=== PATIENT | male | born 1970 | race Caucasian/White ===

== ENCOUNTER 2016-03-18 02:03 | Inpatient (IN) | payer MEDICAID ==
[~2016-03-18] VITALS: Ht 180.3 cm; Wt 102.2 kg
[~2016-03-18 02:03] MED LIST: GEMF600T PO; LANT3I SC; LEVO500T72 PO; METF500T PO; REPA2TAB6 PO; ULT50 PO
[2016-03-18] MEDS ORDERED: SODIUM CHLORIDE 0.9% 1L BAG IV* STA (02:51)
[2016-03-18] MEDS ORDERED: ONDANSETRON 4 MG INJ IV STA (02:59)
[2016-03-18] MEDS ORDERED: morphine 4 MG/ML VIAL IV STA (02:59)
[2016-03-18] MEDS ORDERED: AZTREONAM 1 GM/NS (PMX) 50 ML IVPB ONE (03:00)
[2016-03-18] MEDS ORDERED: VANCOMYCIN 1 GM (PMX) 250 ML IVPB ONE (03:00)
[2016-03-18 04:09] LABS: PARTIAL THROMBOPLASTIN TIME 26.6 Sec (25.0-35.0); PROTIME 13.2 Sec (12.2-14.2)
--- NOTE | 2016-03-18 04:09 | RADRPT ---
PROCEDURE: Chest. CLINICAL INDICATION: Chest pain. TECHNIQUE: Single frontal view of the chest was obtained. COMPARISON: 10/12/2015. FINDINGS: The cardiac silhouette is within normal limits. The aortic arch is unremarkable. There is no focal consolidation, vascular congestion or pleural effusion. There is no pneumothorax. IMPRESSION: No evidence for active cardiopulmonary disease. .Timi Lee MD, MD Date Time Electronically viewed and signed by .Timi Lee MD, on 03/18/2016 04:09 .T/
[2016-03-18 04:11] LABS: BASOPHIL # 0.1 10^3/ul (0.0-0.1); BASOPHILS % 0.5 % (0.0-2.0); EOSINOPHILS # 0.3 10^3/ul (0.0-0.5); EOSINOPHILS % 2.1 % (0.0-7.0); HEMATOCRIT 39.2 % (42.0-52.0); HEMOGLOBIN 13.1 g/dl (14.0-18.0); LYMPHOCYTES # 2.3 10^3/ul (0.8-2.9); LYMPHOCYTES % 17.9 % (15.0-51.0); MEAN CORPUSCULAR HGB CONC 33.5 g/dl (32.0-37.0); MEAN CORPUSCULAR VOLUME 86.7 fl (82.0-101.0); MEAN PLATELET VOLUME 8.2 fl (7.4-10.4); MONOCYTE # 1.2 10^3/ul (0.3-0.9); MONOCYTES % 9.6 % (0.0-11.0); NEUTROPHIL # 9.1 10^3/ul (1.6-7.5); NEUTROPHILS % 69.9 % (39.0-77.0); PLATELET COUNT 371 10^3/UL (140-440); RED BLOOD COUNT 4.53 10^6/ul (4.70-6.10); RED CELL DISTRIBUTION WIDTH 14.9 % (11.5-14.5)
[2016-03-18 04:14] LABS: CONDITION 1; LH ANALYZER COMMENTS 1
[2016-03-18 04:17] LABS: ALBUMIN 3.9 g/dl (3.3-4.9); CHLORIDE 95 mmol/L (97-110); POTASSIUM 4.5 mmol/L (3.5-5.1); SODIUM 136 mmol/L (135-144)
[2016-03-18 04:19] LABS: ANION GAP 20 (8-16); BILIRUBIN,INDIRECT 0.1 mg/dl (0-1.1); BILIRUBIN,TOTAL 0.1 mg/dl (0.2-1.3); CARBON DIOXIDE 26 mmol/L (21-31); CREATININE 1.02 mg/dl (0.61-1.24)
[2016-03-18 04:20] LABS: ALANINE AMINOTRANSFERASE 14 IU/L (13-69); ALBUMIN/GLOBULIN RATIO 0.79; ALKALINE PHOSPHATASE 122 IU/L (42-121); ASPARTATE AMINO TRANSFERASE 13 IU/L (15-46); BLOOD UREA NITROGEN 22 mg/dl (7-20); CALCIUM 9.5 mg/dl (8.4-10.2); TOTAL PROTEIN 8.8 g/dl (6.1-8.1)
[2016-03-18 04:32] LABS: GLUCOSE 414 mg/dl (70-220)
[2016-03-18] MEDS ORDERED: INSULIN LISPRO 100 UNIT/ML VIAL SC STA (04:34)
[2016-03-18 04:40] LABS: TROPONIN-I < 0.012 ng/ml (0.00-0.12)
--- NOTE | 2016-03-18 04:50 | RADRPT ---
PROCEDURE: XR Foot. CLINICAL INDICATION: Infection. TECHNIQUE: AP, lateral and oblique views of the right foot was obtained. COMPARISON: There are no similar studies submitted for comparison. FINDINGS: There is normal bone mineralization. There is no acute fracture or dislocation. No osseous erosions are identified. The joint spaces are within normal limits. IMPRESSION: No destructive osseous changes. Please note this does not exclude osteomyelitis. RPTAT: HIKT .Brent Van MD, MD Date Time Electronically viewed and signed by .Brent Van MD, MD on 03/18/2016 04:50 .T/
[2016-03-18] MEDS ORDERED: SOD CHLORIDE 0.9% 1,000 ML IV STA ×2 (04:52)
[2016-03-18] MEDS ORDERED: SOD CHLORIDE 0.9% 500 ML IV STA (04:52)
--- NOTE | 2016-03-18 05:25 | ERA ---
ER Documentation Chief Complaint Date/Time DATE: 03/18/16 TIME: 05:22 Chief Complaint R foot diabetic ulcer worsening pain HPI Patient is a 45-year-old male with diabetes who presents with a right sided foot ulcer with infection. He said that he stepped on a nail 2.5 years ago and this is when it all started. However his ulcer started again on March 10. It is gotten worse. He says "I popped the white part". He had subjective fevers but has not taken his temperature as of yet. He has had no recent antibiotics. Upon review of old medical records this is the patient's ninth visit to the ER since 2014. He does not know the name of his primary doctor. ROS All systems reviewed and are negative except as per history of present illness. Medications Home Meds Active Scripts Levofloxacin* (Levaquin*) 500 Mg Tablet, 500 MG PO DAILY@06 for 42 Days, TAB x6 weeks Prov:TED WISDOM NP 10/17/15 Insulin Glargine* (Lantus*) 100 Unit/Ml Soln, 24 UNIT SC DAILY for 30 Days Prov:TED WISDOM NP 10/17/15 Tramadol HCl (Tramadol HCl) 50 Mg Tab, 50 MG PO Q6H Y for PAIN, #20 TAB Prov:WILTON NANCE 12/16/14 Repaglinide* (Prandin*) 2 Mg Tablet, 2 MG PO AC MEALS for 30 Days, TAB Prov:WILTON NANCE 12/16/14 Metformin Hcl (Glucophage) 500 Mg Tab, 1000 MG PO WITH BREAKFAST DINNE for 30 Days Prov:WILTON NANCE 12/16/14 Gemfibrozil* (Lopid*) 600 Mg Tab, 600 MG PO BID for 30 Days Prov:WILTON NANCE 12/16/14 Allergies Allergies: Coded Allergies: cefepime (Verified Allergy, Intermediate, HIVES, 12/03/14) PMhx/Soc History of Surgery: Yes (R ankle surgery) Anesthesia Reaction: No Hx Neurological Disorder: No Hx Respiratory Disorders: No Hx Cardiac Disorders: No Hx Psychiatric Problems: No Hx Miscellaneous Medical Probl: Yes (DM2, diabetic foot ulcers x2 years) Hx Alcohol Use: Yes (SOCIAL DRINKER) Hx Substance Use: Yes Hx Tobacco Use: No Smoking Status: Never smoker FmHx Family History: diabetes Physical Exam Vitals Vital Signs Date Time Temp Pulse Resp B/P Pulse Ox O2 Delivery O2 Flow Rate FiO2 03/18/16 02:10 98.0 118 18 139/90 96 Physical Exam Const: Mild distress Head: Atraumatic Eyes: Normal Conjunctiva ENT: Normal External Ears, Nose and Mouth. Neck: Full range of motion..~ No meningismus. Resp: Clear to auscultation bilaterally Cardio: Regular rate and rhythm, no murmurs Abd: Soft, non tender, non distended. Normal bowel sounds Skin: Diabetic foot ulcer to the base of the right foot with surrounding erythema and warmth to touch Back: No midline or flank tenderness Ext: No cyanosis, or edema Neur: Awake and alert Psych: Normal Mood and Affect Result Diagram: 03/18/160 03/18/16 0310 Results 24 hrs Laboratory Tests Test 03/18/16 03:10 03/18/16 03:40 03/18/16 05:02 Activated Partial Thromboplast Time 26.6Sec Alanine Aminotransferase (ALT/SGPT) 14IU/L Albumin 3.9g/dl Albumin/Globulin Ratio 0.79 Alkaline Phosphatase 122IU/L Anion Gap 20 Aspartate Amino Transf (AST/SGOT) 13IU/L Basophils # 0.110^3/ul Basophils % 0.5% Blood Morphology Comment Blood Urea Nitrogen 22mg/dl Calcium Level 9.5mg/dl Carbon Dioxide Level 26mmol/L Chloride Level 95mmol/L Creatinine 1.02mg/dl Direct Bilirubin 0.00mg/dl Eosinophils # 0.310^3/ul Eosinophils % 2.1% Globulin 4.90g/dl Glucose Level 414mg/dl Hematocrit 39.2% Hemoglobin 13.1g/dl INR International Normalized Ratio 1.00 Indirect Bilirubin 0.1mg/dl Lymphocytes # 2.310^3/ul Lymphocytes % 17.9% Mean Corpuscular Hemoglobin 29.0pg Mean Corpuscular Hemoglobin Concent 33.5g/dl Mean Corpuscular Volume 86.7fl Mean Platelet Volume 8.2fl Monocytes # 1.210^3/ul Monocytes % 9.6% Neutrophils # 9.110^3/ul Neutrophils % 69.9% Nucleated Red Blood Cells # 0.010^3/ul Nucleated Red Blood Cells % 0.0/100WBC Platelet Count 54351^3/UL Potassium Level 4.5mmol/L Prothrombin Time 13.2Sec Prothrombin Time Ratio 1.0 Red Blood Count 4.5310^6/ul Red Cell Distribution Width 14.9% Sodium Level 136mmol/L Total Bilirubin 0.1mg/dl Total Protein 8.8g/dl Troponin I < 0.012ng/ml White Blood Count 13.010^3/ul Lactic Acid Level 2.3mmol/L Bedside Glucose 325mg/dL Current Medications Medications (Trade) Dose Ordered Sig/Cody Route PRN Reason Start Time Stop Time Status Last Admin Dose Admin Sodium Chloride 3190 ml 3,190 ml BOLUS OVER 2 HOURS STAT IV* 03/18/16 02:51 03/18/16 02:53 DC 03/18/16 03:23 Vancomycin HCl 250 ml @ 125 mls/hr ONCE ONCE IVPB 03/18/16 03:00 03/18/16 04:59 DC 03/18/16 04:09 Aztreonam (Azactam 1gm/NS (Pmx)) 50 ml @ 100 mls/hr ONCE ONCE IVPB 03/18/16 03:00 03/18/16 03:29 DC 03/18/16 03:34 Morphine Sulfate (morphine) 4 mg ONCE STAT IV 03/18/16 02:59 03/18/16 03:00 DC 03/18/16 03:22 Ondansetron HCl (Zofran Inj) 4 mg ONCE STAT IV 03/18/16 02:59 03/18/16 03:00 DC 03/18/16 03:22 Insulin Human Lispro 10 unit 10 unit ONCE STAT SC 03/18/16 04:34 03/18/16 04:35 DC 03/18/16 05:06 Sodium Chloride 1,000 ml @ 1,000 mls/hr Q1H STAT IV 03/18/16 04:52 03/18/16 05:51 03/18/16 05:07 Sodium Chloride 500 ml @ 500 mls/hr Q1H STAT IV 03/18/16 04:52 03/18/16 05:51 03/18/16 05:07 Sodium Chloride (NS) 1,000 ml @ 1,000 mls/hr Q1H STAT IV 03/18/16 04:52 03/18/16 05:51 03/18/16 05:07 Ondansetron HCl (Zofran Inj) 4 mg BRIDGE ORDER PRN IV NAUSEA AND/OR VOMITING 03/18/16 05:30 03/19/16 05:29 Acetaminophen (Tylenol Tab) 650 mg ER BRIDGE PRN PO MILD PAIN/FEVER 03/18/16 05:30 03/19/16 05:29 Procedures/MDM Chest x-ray negative per radiology. X-ray of the right foot negative for osteomyelitis per radiology. Admit MDM: Patient's infectious symptoms have not stabilized and the patient is at risk of rapid decompensation. The patient will be admitted for careful hydration, antibiotic therapy, and infectious source control. Severe Sepsis criteria: Infectious source: Diabetic foot ulcer with cellulitis End organ damage indicated by: Lactate greater than 2 Sepsis Management: Time of recognition of sepsis: 03:40 Within 3 hours of recognition: Blood cultures x 2 before broad-spectrum antibiotics: Yes 30 ml/kg NS bolus Completed Initial lactate 2.3 Repeat lactate pending Time of recognition of septic shock: No septic shock Septic Shock Assessment: Any lactic acid > 4.0 No Persistent hypotension (SBP < 90 or 40 mmHg drop, MAP < 65) despite 30 mL/kg IV fluid bolus No Volume Re-assessment for Septic Shock (post 30 ml/kg bolus): No septic shock at this time Persistent Hypotension Treatment: Comfort care No Central line Not Required Vasopressor started Not required I considered further perfusion assessment with CVP measurement, SCVO2, bedside ultrasound volume assessment, passive leg raise, trial of further fluid bolus. And proceeded with 30 ml/kg fluid bolus of NSS, broad spectrum antibiotics, and admission. The patient has hyperglycemia and was given Humalog subcutaneous but there are no signs of diabetic ketoacidosis. Accepting Care Team Current data and ongoing care discussed. Admitting Physician: Dr. Menon Distributor Of Directories(s): None Outstanding Data: Culture results and repeat lactic acid Critical Care: Critical care time 35 minutes excluding all billable procedures Emergent fluid management while maintaining close respiratory support. Provision of immediate and broad-spectrum antibiotic therapy. Simultaneous assessment for possible sources in order to direct targeted therapy. Consideration for invasive and chemical support to prevent cardiopulmonary collapse. Departure Diagnosis: Primary Impression: Severe sepsis Additional Impressions: Diabetic foot ulcer Qualified Code: E13.621 - Diabetic ulcer of right foot associated with other specified diabetes mellitus Foot pain Qualified Code: M79.671 - Right foot pain Condition: Serious OSTICK,ANA LILIA MD Mar 18, 2016 05:25
[2016-03-18 05:27] VITALS: TEMP 97.9
[2016-03-18] MEDS ORDERED: ONDANSETRON 4 MG INJ IV PRN (05:30)
[2016-03-18] MEDS ORDERED: ACETAMINOPHEN 325 MG TAB PO PRN (05:30)
[2016-03-18] MEDS ORDERED: traMADol 50 MG TAB PO PRN (06:00)
[2016-03-18] MEDS ORDERED: INSULIN GLARGINE [LANtus] 3 ML PEN SC SCH (06:00)
[2016-03-18] MEDS ORDERED: CLINDAMYCIN 600 MG/D5W (PMX) 50 ML IVPB SCH (06:00)
[2016-03-18] MEDS ORDERED: DEXTROSE 50% 50 ML SYRINGE IV PRN ×2 (06:30)
[2016-03-18] MEDS ORDERED: GLUCOSE GEL 15 GRAM TUBE BUCCAL PRN (06:30)
[2016-03-18] MEDS ORDERED: GLUCAGON 1 MG INJ IM PRN (06:30)
[2016-03-18] MEDS ORDERED: GLUCOSE GEL 15 GRAM TUBE PO PRN ×2 (06:30)
[2016-03-18 06:50] VITALS: BP 133/90; PULSE 80; RESP 20
[2016-03-18 06:52] VITALS: Ht 180.3 cm; Wt 102.2 kg
[2016-03-18] MEDS ORDERED: REPAGLINIDE 2 MG TAB PO SCH (07:00)
[2016-03-18] MEDS ORDERED: metFORMIN 500 MG TAB PO SCH (08:00)
[2016-03-18 08:09] VITALS: BP 130/79; RESP 20
[2016-03-18] MEDS: LEVOFLOXACIN 750MG/D5W (PMX) 150 ML IVPB SCH (08:24)
[2016-03-18] MEDS: GEMFIBROZIL 600 MG TAB PO SCH ×2 (08:26→20:05)
[2016-03-18] MEDS: FAMOTIDINE 20 MG TAB PO SCH ×2 (08:27→20:05)
[2016-03-18] MEDS: INSULIN ASPART [NOVOLOG] 3 ML PEN SC SCH ×4 (08:35→20:07)
[2016-03-18] MEDS: ENOXAPARIN 40 MG/0.4 ML SYG SC SCH (08:35)
[2016-03-18] MEDS ORDERED: LISINOPRIL 10 MG TAB PO SCH (09:00)
--- NOTE | 2016-03-18 10:14 | PN ---
DATE: 03/18/2016 03/18/2016 SUBJECTIVE: No acute events overnight. The patient, however, complaining of some left-s ided facial swelling. OBJECTIVE VITAL SIGNS: Stable. GENERAL: The patient is lying in bed, no acute distress. HEENT: Pupils equal, round, reactive to light. Extraocular muscles intact. There is some left-trena ed facial swelling but no bleeding noted. NECK: Supple, no thyromegaly. LUNGS: Clear to auscultation bilaterally. CARDIOVASCULAR: S1, S2 heard. No rubs or gallops. ABDOMEN: Soft, nontender, nondistended. Normal bowel sounds. No rebound or guarding. MUSCULOSKELETAL: Based on the right foot shows surrounding erythema and slightly warm to touch. No significant bleeding or oozing noted. Ulcer is present. No lower extremity edema bilaterally. NEUROLOGIC: No focal deficits. LABORATORY DATA: WBC 13.0, hemoglobin 13.1, hematocrit 39.2, platelets of 371. Sodium 136, potassi um 4.5, chloride 95, CO2 26, BUN 22, creatinine 1.02, glucose 414. Most recent fingerstick is 202 o f the sugars. Lactic acid 1.4. LFTs are normal. IMAGING: The right foot x-ray shows no destructive osseous changes, but cannot exclude osteomyeliti s. ASSESSMENT AND PLAN: A 45-year-old male with prior history of uncontrolled diabetes type 2 and righ t foot diabetic ulcer with prior osteomyelitis, who presents with right diabetic ulcer of the foot, worsening. 1. Right diabetic foot ulcer. Continue broad spectrum antibiotics. Will get a podiatry and infect ious disease consults, those are pending. Follow up final culture results as well. Consider surgic al options versus medical treatment. Again, discussed with mental health consultant teams. 2. Uncontrolled type 2 diabetes. Last A1c performed on last admission about 4 months ago was 10.0. Continue Prandin and moderate insulin sliding scale and Lantus. Hold metformin in case the patien t needs any imaging studies with contrast. Consider an endocrinology consult as well. 3. History of methamphetamine use. Follow up drug screen pending. 4. Normocytic normochromic anemia, presently H and H is stable. Continue to monitor for now. 5. History of high cholesterol, hypertriglyceridemia. Continue gemfibrozil. 6. Gastrointestinal prophylaxis. Pepcid. 7. Deep venous thrombosis prophylaxis, Lovenox. Dictated By: RHETT GARCIA Conf#: [id number] DID#: [id number]
--- NOTE | 2016-03-18 10:25 | HP ---
DATE OF ADMISSION: 03/18/2016 PRESENTING COMPLAINT: Right foot pain. HISTORY OF PRESENTING COMPLAINT: This is a 45-year-old male with a past medical history of diabetes type 2, dyslipidemia, and a chronic right foot infection for which he was managed here in 10/2015 a nd there was some concern for early osteomyelitis and he was discharged home on a 6-week antibiotic course. The patient states that his wound was getting better up until about 7 days ago when he karla ed an abscess, a part that he describes as white, and since then, the pain has seemed to get worse. Therefore, the patient came back to the ER today. He does endorse subjective fever. Denies nausea or vomiting. Denies inability to raise the joint or move the joint. Denies lesions anywhere else at this time. REVIEW OF SYSTEMS: A 12-point review of system was done. Pertinent findings are as noted in HPI. PAST MEDICAL HISTORY: 1. Diabetes type 2. 2. Dyslipidemia. 3. Chronic foot ulcer with early osteomyelitis. 4. Chronic anemia of chronic illness. 5. Amphetamine abuser. SURGICAL HISTORY: Includes surgery to right ankle. ALLERGIES: CEFEPIME. SOCIAL HISTORY: Social amphetamine as well as alcohol use. FAMILY HISTORY: Positive for diabetes in both parents. PHYSICAL EXAMINATION: VITAL SIGNS: Temperature 97.9, pulse 104, respirations 18, blood pressure 102/50, saturations 98% o n room air. GENERAL: The patient was alert and oriented, in no distress. HEENT: Head is normocephalic. Pupils are equal, round, and reactive. Mucous membranes are moist. NECK: Supple. CHEST: Clear. CARDIOVASCULAR: S1 and S2, no murmurs. ABDOMEN: Soft, nontender, nondistended with normoactive bowel sounds. EXTREMITIES: There is a wound on the plantar surface of the right foot and another one on the heel. There is surrounding erythema. There is no visible discharge at this time. Otherwise, the left f oot looks normal without edema. The patient seems to have good range of motion in both lower extrem ities. PSYCHIATRIC: Patient was cooperative and calm with exam. LABORATORY VALUES: He has a leukocytosis of 13,000. His chronic anemia is stable with hemoglobin o f 13. Platelets are normal. Chemistry, again, reveals poorly controlled diabetes with a blood suga r of 414 and lactic acid 2.3. His alkaline phosphatase is elevated as is his total protein and glob ulin levels. Coagulation profile unremarkable today. Urinalysis and urine toxicology were not done today. IMAGING: He had a chest x-ray that showed no evidence of active cardiopulmonary disease on my revie w, and he had an x-ray of his right foot that showed no destructive osseous changes, but that does n ot rule out osteomyelitis. ASSESSMENT: This is a 45-year-old male, noncompliance with diabetic therapy, who is being managed a s follows: 1. Persistent right plantar diabetic foot ulcer, status post 6 weeks of antibiotics recurrent infection. Last cultures grew out Staphylococcus aureus, group B streptococcus, and group G beta-h emolytic streptococcus. The plan is to commence antibiotic therapy based on previous culture result s and repeat wound cultures and go from there. 2. Poorly controlled diabetes mellitus, which is likely contributing to nonhealing of #1, likely as a result of patient's lack of compliance with therapy. When patient was here the last time, he had good response to treatment. Will continue him on what he was taking before in terms of Lantus and metformin. Put him on an 1800 ADA diet and tailor his regimen as needed. 3. Dyslipidemia with hypertriglyceridemia, on gemfibrozil. Continue that. 4. Methamphetamine abuse. The patient had extensive counseling the last time he was in here regard ing quitting. Will re-recommend this at this time and continue to reinforce while in-house. 5. Anemia of chronic disease. The patient will receive in-house monitoring of his hemoglobin level s and intervention as indicated. I discussed this plan with the patient and have answered all quest ions. Admission time spent about 40 minutes. Dictated By: KAYA VEGA MD BA/NTS Conf#: [id number] DID#: [id number]
[2016-03-18] MEDS: morphine 2 MG INJ IV PRN ×3 (10:35→22:11)
[2016-03-18 11:45] LABS: ADD UMIC NO; URINE BILIRUBIN (Dip) NEGATIVE (NEGATIVE); URINE BLOOD (Dip) NEGATIVE (NEGATIVE); URINE COLOR LT. YELLOW (YELLOW); URINE KETONES (Dip) NEGATIVE (NEGATIVE); URINE LEUKOCYTE ESTERASE (Dip) NEGATIVE (NEGATIVE); URINE NITRITE (Dip) NEGATIVE (NEGATIVE); URINE TOTAL PROTEIN (Dip) NEGATIVE (NEGATIVE); URINE UROBILINOGEN (Dip) 0.2 E.U./dL (0.1-1.0)
[2016-03-18 12:03] LABS: BARBITURATES NEGATIVE (NEGATIVE); BENZODIAZEPINES NEGATIVE (NEGATIVE); CANNABINOIDS NEGATIVE (NEGATIVE); COCAINE NEGATIVE (NEGATIVE)
[2016-03-18 12:05] LABS: OPIATES POSITIVE (NEGATIVE)
[2016-03-18] MEDS: REPAGLINIDE 1 MG TAB PO SCH ×2 (12:40→17:32)
[2016-03-18] MEDS: CLINDAMYCIN 600 MG/D5W (PMX) 50 ML IVPB SCH (19:41)
[2016-03-18 20:00] VITALS: BP 115/71; PULSE 100; RESP 20
--- NOTE | 2016-03-18 20:15 | CONS ---
DATE OF ADMISSION: 03/18/2016 DATE OF CONSULTATION: 03/18/2016 TYPE OF CONSULTATION: Infectious disease. REASON FOR CONSULTATION: Right foot pain. HISTORY OF PRESENT ILLNESS: Ty Rodriguez is a 45-year-old male well known to us from previo admissions, who is admitted now with right foot pain. PAST PROBLEMS INCLUDE: 1. Adult-onset diabetes mellitus. 2. Dyslipidemia. 3. Chronic foot ulcer with early osteomyelitis. 4. Anemia of chronic disease. 5. Amphetamine abuse. 6. Surgery to the right ankle. 7. ALLERGY TO CEFEPIME. 8. History of alcohol use. He does not smoke. He does abuse amphetamines. The patient was seen with chronic foot infection, which was managed here in October of 2015. There w as concern for osteomyelitis and he was discharged on a 6-week course of antibiotic therapy. This w as completed in December, but he is noncompliant, kept picking on his wounds, and did not follow up w ith the [facility]. He was getting better until about 7 days prior to admission when he popped an a bscess, which he describes as being white, and the pain has been worse since then. He does have sub jective fever. PHYSICAL EXAMINATION: GENERAL: He is a well-developed, well-nourished male, alert, responsive, in no acute distr ess. VITAL SIGNS: Stable. He is afebrile. SKIN: Without generalized rash. HEENT: Within normal limits. NECK: Supple. LYMPH NODES: None palpable. CHEST: Decreased breath sounds at the bases. HEART: Without murmur or gallop. ABDOMEN: Soft, nontender without organosplenomegaly or masses. EXTREMITIES: There is a wound on the plantar surface of the right foot and also on the heel with kerr rrounding erythema. No visible discharge at this time. Left foot appears normal without edema. He has good range of motion of both lower extremities. RECTAL AND GENITAL: Deferred. NEUROLOGIC: No focal neurological abnormalities. ANCILLARY LABORATORY DATA: On admission, his white count is 13.0, H and H 13.1 and 39.2, platelet c ount 371,000. BUN and creatinine are 22/1.0. Glucose of 414. Urine is negative for nitrites and f or leukocyte esterase. Chest x-ray: No evidence of acute cardiopulmonary disease. Foot x-ray: No destructive changes. IMPRESSION AND PLAN: The patient presents again with a chronic foot ulcer. He is being followed by Dr. Mcclendon. He was started on clindamycin and Levaquin. We will continue him on this regimen. I will dictate my findings to the hospitalist and to Dr. Mcclendon. Dictated By: DIMA BURCIAGA MD, JD/RANDALL Conf#: [id number] DID#: [id number]
[2016-03-18 20:18] VITALS: BP 115/71; RESP 20
[2016-03-19] MEDS: ACCUCHECK AT 2AM (Patients on SS coverage) XX SCH (01:08)
[2016-03-19] MEDS: CLINDAMYCIN 600 MG/D5W (PMX) 50 ML IVPB SCH ×3 (02:23→18:30)
[2016-03-19] MEDS: morphine 2 MG INJ IV PRN ×3 (05:29→20:50)
[2016-03-19 06:04] LABS: POTASSIUM 4.4 mmol/L (3.5-5.1)
[2016-03-19 06:06] LABS: CREATININE 0.97 mg/dl (0.61-1.24)
[2016-03-19] MEDS: LEVOFLOXACIN 750MG/D5W (PMX) 150 ML IVPB SCH (06:06)
[2016-03-19 06:07] LABS: CALCIUM 8.9 mg/dl (8.4-10.2); MAGNESIUM 1.8 mg/dl (1.7-2.5)
[2016-03-19 06:25] LABS: BASOPHIL # 0.1 10^3/ul (0.0-0.1); BASOPHILS % 0.4 % (0.0-2.0); EOSINOPHILS # 0.3 10^3/ul (0.0-0.5); EOSINOPHILS % 2.8 % (0.0-7.0); HEMATOCRIT 35.8 % (42.0-52.0); LYMPHOCYTES # 2.6 10^3/ul (0.8-2.9); LYMPHOCYTES % 21.5 % (15.0-51.0); MEAN CORPUSCULAR HEMOGLOBIN 29.2 pg (29.0-33.0); MEAN CORPUSCULAR HGB CONC 33.5 g/dl (32.0-37.0); MEAN CORPUSCULAR VOLUME 87.3 fl (82.0-101.0); MONOCYTE # 1.1 10^3/ul (0.3-0.9); MONOCYTES % 9.5 % (0.0-11.0); NEUTROPHIL # 7.9 10^3/ul (1.6-7.5); NEUTROPHILS % 65.8 % (39.0-77.0); PLATELET COUNT 345 10^3/UL (140-440); RED CELL DISTRIBUTION WIDTH 14.8 % (11.5-14.5); UNCORRECTED WBC 12.1 10^3/ul (4.8-10.8); WHITE BLOOD COUNT 12.1 10^3/ul (4.8-10.8)
[2016-03-19 06:31] LABS: CONDITION 1; LH ANALYZER COMMENTS 1
[2016-03-19 07:16] VITALS: BP 116/69; RESP 18
[2016-03-19] MEDS: REPAGLINIDE 1 MG TAB PO SCH ×3 (08:19→17:52)
[2016-03-19] MEDS: GEMFIBROZIL 600 MG TAB PO SCH ×2 (08:20→20:43)
[2016-03-19] MEDS: FAMOTIDINE 20 MG TAB PO SCH ×2 (08:20→20:43)
[2016-03-19] MEDS: INSULIN ASPART [NOVOLOG] 3 ML PEN SC SCH ×4 (08:29→20:48)
[2016-03-19] MEDS: ENOXAPARIN 40 MG/0.4 ML SYG SC SCH (08:30)
[2016-03-19] MEDS: INSULIN GLARGINE [LANtus] 3 ML PEN SC SCH (08:39)
--- NOTE | 2016-03-19 09:30 | PN ---
Date/Time of Note Date/Time of Note DATE: 03/19/16 TIME: 09:18 Assessment/Plan VTE Prophylaxis VTE Prophylaxis Intervention: LMWH Lines/Catheters IV C[facility] Type [facility] Peripheral IV Assessment/Plan Chief Complaint/Hosp Course ASSESSMENT AND PLAN: 45-year-old male with prior history of uncontrolled diabetes type 2 and right foot diabetic ulcer with prior osteomyelitis, who presents with right diabetic ulcer of the foot, worsening. 1. Right diabetic foot ulcer. - Continue broad spectrum antibiotics. - f/u podiatry and infectious disease consult rec's. - Follow up final culture results as well. Consider surgical options versus medical treatment. 2. Uncontrolled type 2 diabetes. A1c = 10.4 - Continue Prandin and moderate insulin sliding scale and Lantus. - Holding metformin in case the patient needs any imaging studies with contrast. - Consider an endocrinology consult as well. 3. History of methamphetamine use - + meth again - monitor, consel about cessation 4. Normocytic normochromic anemia, presently H and H is stable. Continue to monitor for now. 5. History of high cholesterol, hypertriglyceridemia. Continue gemfibrozil. 6. Gastrointestinal prophylaxis. Pepcid. 7. Deep venous thrombosis prophylaxis, Lovenox. Problems: Subjective 24 Hr Interval Summary Free Text/Dictation No acute events overnight, seen by ID team. Exam/Review of Systems Vital Signs Vitals Vital Signs Date Time Temp Pulse Resp B/P Pulse Ox O2 Delivery O2 Flow Rate FiO2 03/19/16 07:16 97.1 80 18 116/69 97 03/18/16 20:00 Room Air Intake and Output 03/18/16 03/18/16 03/19/16 15:00 23:00 07:00 Intake Total 200 ml 650 ml 530 ml Balance 200 ml 650 ml 530 ml Exam GENERAL: The patient is lying in bed, no acute distress. HEENT: Pupils equal, round, reactive to light. Extraocular muscles intact. There is some left-sided facial swelling but no bleeding noted. NECK: Supple, no thyromegaly. LUNGS: Clear to auscultation bilaterally. CARDIOVASCULAR: S1, S2 heard. No rubs or gallops. ABDOMEN: Soft, nontender, nondistended. Normal bowel sounds. No rebound or guarding. MUSCULOSKELETAL: Based on the right foot shows surrounding erythema and slightly warm to touch. + mild oozing from bandage, Ulcer is present. No lower extremity edema bilaterally. NEUROLOGIC: No focal deficits. Results Result Diagram: 03/19/16 0457 03/19/16 0457 Results 24 hrs Laboratory Tests Test 03/18/16 10:30 03/18/16 12:39 03/18/16 17:33 03/18/16 20:07 Urine Amphetamines Screen POSITIVE Urine Barbiturates NEGATIVE Urine Benzodiazepines Screen NEGATIVE Urine Bilirubin NEGATIVE Urine Cannabinoids NEGATIVE Urine Clarity CLEAR Urine Cocaine Screen NEGATIVE Urine Color LT. YELLOW Urine Glucose 0.5% H Urine Hemoglobin NEGATIVE Urine Ketones NEGATIVE Urine Leukocyte Esterase NEGATIVE Urine Nitrite NEGATIVE Urine Opiates Screen POSITIVE Urine Specific [place] 1.020 Urine Total Protein NEGATIVE Urine Urobilinogen 0.2 E.U./dL Urine pH 6.0 Bedside Glucose 194 121 87 Test 03/19/16 04:57 03/19/16 07:41 Anion Gap 15 Basophils # 0.1 Basophils % 0.4 Blood Morphology Comment Blood Urea Nitrogen 14 Calcium Level 8.9 Carbon Dioxide Level 30 Chloride Level 98 Creatinine 0.97 Eosinophils # 0.3 Eosinophils % 2.8 Glucose Level 173 # Hematocrit 35.8 L Hemoglobin 12.0 L Hemoglobin A1c 10.4 H Lymphocytes # 2.6 Lymphocytes % 21.5 Magnesium Level 1.8 Mean Corpuscular Hemoglobin 29.2 Mean Corpuscular Hemoglobin Concent 33.5 Mean Corpuscular Volume 87.3 Mean Platelet Volume 8.0 Monocytes # 1.1 H Monocytes % 9.5 Neutrophils # 7.9 H Neutrophils % 65.8 Nucleated Red Blood Cells # 0.0 Nucleated Red Blood Cells % 0.0 Platelet Count 345 Potassium Level 4.4 Red Blood Count 4.10 L Red Cell Distribution Width 14.8 H Sodium Level 139 White Blood Count 12.1 H Bedside Glucose 225 H Medications Medications Current Medications Gemfibrozil (Lopid) 600 mg BID PO Last administered on 03/19/16 08:20; Admin Dose 600 MG; Start 03/18/16 at 09:00 Tramadol HCl (Ultram) 50 mg Q6H PRN PO PAIN Last administered on 03/18/16 18:06 ; Admin Dose 50 MG; Start 03/18/16 at 06:00 Morphine Sulfate 2 mg 2 mg Q4H PRN IV pain Last administered on 03/19/16 05:29 ; Admin Dose 2 MG; Start 03/18/16 at 06:00 Levofloxacin/ Dextrose (Levaquin 750 Mg/ D5W 150 ml (Pmx)) 150 ml @ 100 mls/hr Q24H IVPB Last administered on 03/19/16 06:06; Admin Dose 100 MLS/HR; Start 03/18/16 at 06:00 Famotidine (Pepcid) 20 mg BID PO Last administered on 03/19/16 08:20; Admin Dose 20 MG; Start 03/18/16 at 09:00 Enoxaparin Sodium (Lovenox) 40 mg DAILY SC Last administered on 03/19/16 08:30 ; Admin Dose 40 MG; Start 03/18/16 at 09:00 Lisinopril (Zestril) 10 mg DAILY PO Last administered on 03/18/16 08:25; Admin Dose 10 MG; Start 03/18/16 at 09:00; Status Future Hold Diagnostic Test (Pha) (Accucheck) 1 ea 02 XX ; Start 03/19/16 at 02:00 Miscellaneous Information 1 ea NOTE XX ; Start 03/18/16 at 06:30 Glucose (Glutose) 15 gm Q15M PRN PO DECREASED GLUCOSE; Start 03/18/16 at 06:30 Glucose (Glutose) 22.5 gm Q15M PRN PO DECREASED GLUCOSE; Start 03/18/16 at 06:30 Dextrose (D50w Syringe) 25 ml Q15M PRN IV DECREASED GLUCOSE; Start 03/18/16 at 06:30 Dextrose (D50w Syringe) 50 ml Q15M PRN IV DECREASED GLUCOSE; Start 03/18/16 at 06:30 Glucagon (Glucagen) 1 mg Q15M PRN IM DECREASED GLUCOSE; Start 03/18/16 at 06:30 Glucose (Glutose) 15 gm Q15M PRN BUCCAL DECREASED GLUCOSE; Start 03/18/16 at 06: 30 Insulin Glargine (Lantus) 24 unit DAILY SC Last administered on 03/19/16 08:39 ; Admin Dose 24 UNIT; Start 03/19/16 at 09:00 Influenza Virus Vaccine 0.5 ml 0.5 ml ONCE ONCE IM* ; Start 03/19/16 at 11:00; Stop 03/19/16 at 11:01 Clindamycin HCl/ Dextrose (Cleocin 600 Mg/ D5W (Pmx)) 50 ml @ 50 mls/hr Q8H IVPB Last administered on 03/19/16t 02:23; Admin Dose 50 MLS/HR; Start 03/18/16 at 19:00 RHETT MIRANDA Mar 19, 2016 09:28
[2016-03-19] MEDS ORDERED: INFLUENZA VIRUS VACCINE 0.5 ML SYG IM* ONE (11:00)
[2016-03-19] MEDS: LACTOBACILLUS CHEW TAB PO SCH ×2 (12:16→20:43)
--- NOTE | 2016-03-19 12:33 | PN ---
DATE: 03/19/2016 SUBJECTIVE: No changes overnight. The patient is alert, looks comfortable, no fevers. LABORATORIES: WBC today 12.1, no shift, no bands. BUN 14, creatinine 0.97. MICROBIOLOGY: Blood cultures negative. Stool for C. diff came back negative. ANTIMICROBIALS: The patient is on clindamycin and Levaquin. DIAGNOSTICS: X-ray of the foot revealed no destructive osseous changes. PHYSICAL EXAMINATION: GENERAL: Well-developed, well-nourished, middle-aged man who is awake, in no distress. HEENT: Head atraumatic, normocephalic. Sclerae anicteric. Buccal mucosa dry. NECK: Supple, trachea midline. CHEST: Rise symmetrical. Breath sounds clear. HEART: S1, S2. ABDOMEN: Soft. Bowel tones present. EXTREMITIES: Without cyanosis. Right foot dressing intact. ASSESSMENT: 1. Acute on chronic right foot cellulitis with diabetic ulceration. 2. Diabetes. 3. Anemia. 4. History of amphetamine abuse and alcohol use. PLAN: The patient remains stable, pending podiatry evaluation. Continue present care. Await for w ound cultures and consider changing antibiotics to p.o. once the patient seen by podiatry and if ost eomyelitis . Dictated By: TANESHA AGGARWAL [employer] for DIMA SERNA/RANDALL Conf#: [id number] DID#: [id number]
[2016-03-19 20:55] VITALS: BP 121/74; RESP 18
[2016-03-20] MEDS: CLINDAMYCIN 600 MG/D5W (PMX) 50 ML IVPB SCH (02:12)
[2016-03-20] MEDS: ACCUCHECK AT 2AM (Patients on SS coverage) XX SCH ×2 (02:12→20:43)
[2016-03-20] MEDS: morphine 2 MG INJ IV PRN ×4 (04:48→21:52)
[2016-03-20] MEDS: LEVOFLOXACIN 750MG/D5W (PMX) 150 ML IVPB SCH (05:28)
[2016-03-20 06:32] LABS: BASOPHILS % 0.4 % (0.0-2.0); EOSINOPHILS # 0.3 10^3/ul (0.0-0.5); EOSINOPHILS % 3.2 % (0.0-7.0); HEMATOCRIT 37.5 % (42.0-52.0); HEMOGLOBIN 12.7 g/dl (14.0-18.0); LYMPHOCYTES # 2.3 10^3/ul (0.8-2.9); LYMPHOCYTES % 23.6 % (15.0-51.0); MEAN CORPUSCULAR HEMOGLOBIN 29.4 pg (29.0-33.0); MEAN CORPUSCULAR HGB CONC 33.8 g/dl (32.0-37.0); MEAN CORPUSCULAR VOLUME 86.8 fl (82.0-101.0); MONOCYTE # 0.9 10^3/ul (0.3-0.9); MONOCYTES % 9.4 % (0.0-11.0); NEUTROPHIL # 6.2 10^3/ul (1.6-7.5); NEUTROPHILS % 63.4 % (39.0-77.0); PLATELET COUNT 370 10^3/UL (140-440); RED BLOOD COUNT 4.32 10^6/ul (4.70-6.10); RED CELL DISTRIBUTION WIDTH 14.7 % (11.5-14.5); UNCORRECTED WBC 9.7 10^3/ul (4.8-10.8); WHITE BLOOD COUNT 9.7 10^3/ul (4.8-10.8)
[2016-03-20 06:50] LABS: CONDITION 1; LH ANALYZER COMMENTS 1; POTASSIUM 4.8 mmol/L (3.5-5.1)
[2016-03-20 06:52] LABS: CREATININE 0.95 mg/dl (0.61-1.24)
[2016-03-20 06:53] LABS: CALCIUM 9.4 mg/dl (8.4-10.2)
[2016-03-20 07:37] VITALS: BP 111/70; RESP 18
[2016-03-20] MEDS: REPAGLINIDE 1 MG TAB PO SCH (08:36)
[2016-03-20] MEDS: GEMFIBROZIL 600 MG TAB PO SCH ×2 (08:36→20:47)
[2016-03-20] MEDS: INSULIN ASPART [NOVOLOG] 3 ML PEN SC SCH ×4 (08:38→20:43)
[2016-03-20] MEDS: INSULIN GLARGINE [LANtus] 3 ML PEN SC SCH (08:39)
[2016-03-20] MEDS: ENOXAPARIN 40 MG/0.4 ML SYG SC SCH (08:40)
[2016-03-20] MEDS: FAMOTIDINE 20 MG TAB PO SCH ×2 (08:43→20:47)
[2016-03-20] MEDS: LACTOBACILLUS CHEW TAB PO SCH ×3 (08:44→12:36)
--- NOTE | 2016-03-20 10:17 | PN ---
Date/Time of Note Date/Time of Note DATE: 03/20/16 TIME: 10:16 Assessment/Plan VTE Prophylaxis VTE Prophylaxis Intervention: LMWH Lines/Catheters IV Catheter Type (from [facility]): Saline Lock Assessment/Plan Chief Complaint/Hosp Course ASSESSMENT AND PLAN: 45-year-old male with prior history of uncontrolled diabetes type 2 and right foot diabetic ulcer with prior osteomyelitis, who presents with right diabetic ulcer of the foot, worsening. 1. Right diabetic foot ulcer. - Continue broad spectrum antibiotics. - f/u podiatry and infectious disease consult rec's. - Follow up final culture results as well. Consider surgical options versus medical treatment. 2. Uncontrolled type 2 diabetes. A1c = 10.4 - Continue Prandin and moderate insulin sliding scale and Lantus. - Holding metformin in case the patient needs any imaging studies with contrast. - Consider an endocrinology consult as well. 3. History of methamphetamine use - + meth again - monitor, school guidance counselor about cessation 4. Normocytic normochromic anemia, presently H and H is stable. Continue to monitor for now. 5. History of high cholesterol, hypertriglyceridemia. Continue gemfibrozil. 6. Gastrointestinal prophylaxis. Pepcid. 7. Deep venous thrombosis prophylaxis, Lovenox. Problems: Subjective 24 Hr Interval Summary Free Text/Dictation Seen by ID team yesterday, no acute events overnight. Exam/Review of Systems Vital Signs Vitals Vital Signs Date Time Temp Pulse Resp B/P Pulse Ox O2 Delivery O2 Flow Rate FiO2 03/20/16 07:37 98.3 82 18 111/70 97 03/18/16 20:00 Room Air Intake and Output 03/19/16 03/19/16 03/20/16 15:00 23:00 07:00 Intake Total 150 ml 1220 ml 50 ml Balance 150 ml 1220 ml 50 ml Exam GENERAL: The patient is lying in bed, no acute distress. HEENT: Pupils equal, round, reactive to light. Extraocular muscles intact. There is some left-sided facial swelling but no bleeding noted. NECK: Supple, no thyromegaly. LUNGS: Clear to auscultation bilaterally. CARDIOVASCULAR: S1, S2 heard. No rubs or gallops. ABDOMEN: Soft, nontender, nondistended. Normal bowel sounds. No rebound or guarding. MUSCULOSKELETAL: Based on the right foot shows surrounding erythema and slightly warm to touch. + mild oozing from bandage, Ulcer is present. No lower extremity edema bilaterally. NEUROLOGIC: No focal deficits. Results Result Diagram: 03/20/16 0503/20/16 0525 Results 24 hrs Laboratory Tests Test 03/19/16 11:49 03/19/16 17:39 03/19/16 20:45 03/20/16 02:11 Bedside Glucose 184 204 269 H 219 Test 03/20/16 05:25 03/20/16 07:43 Anion Gap 19 H Basophils # 0.0 Basophils % 0.4 Blood Morphology Comment Blood Urea Nitrogen 18 Calcium Level 9.4 Carbon Dioxide Level 28 Chloride Level 98 Creatinine 0.95 Eosinophils # 0.3 Eosinophils % 3.2 Glucose Level 221 H Hematocrit 37.5 L Hemoglobin 12.7 L Lymphocytes # 2.3 Lymphocytes % 23.6 Mean Corpuscular Hemoglobin 29.4 Mean Corpuscular Hemoglobin Concent 33.8 Mean Corpuscular Volume 86.8 Mean Platelet Volume 8.0 Monocytes # 0.9 Monocytes % 9.4 Neutrophils # 6.2 Neutrophils % 63.4 Nucleated Red Blood Cells # 0.0 Nucleated Red Blood Cells % 0.0 Platelet Count 370 Potassium Level 4.8 Red Blood Count 4.32 L Red Cell Distribution Width 14.7 H Sodium Level 140 White Blood Count 9.7 Bedside Glucose 234 H Medications Medications Current Medications Gemfibrozil (Lopid) 600 mg BID PO Last administered on 03/20/16 08:36; Admin Dose 600 MG; Start 03/18/16 at 09:00 Tramadol HCl (Ultram) 50 mg Q6H PRN PO PAIN Last administered on 03/18/16 18:06 ; Admin Dose 50 MG; Start 03/18/16 at 06:00 Morphine Sulfate 2 mg 2 mg Q4H PRN IV pain Last administered on 03/20/16 08:56 ; Admin Dose 2 MG; Start 03/18/16 at 06:00 Levofloxacin/ Dextrose (Levaquin 750 Mg/ D5W 150 ml (Pmx)) 150 ml @ 100 mls/hr Q24H IVPB Last administered on 03/20/16 05:28; Admin Dose 100 MLS/HR; Start 03/18/16 at 06:00 Famotidine (Pepcid) 20 mg BID PO Last administered on 03/20/16 08:43; Admin Dose 20 MG; Start 03/18/16 at 09:00 Enoxaparin Sodium (Lovenox) 40 mg DAILY SC Last administered on 03/20/16 08:40 ; Admin Dose 40 MG; Start 03/18/16 at 09:00 Lisinopril (Zestril) 10 mg DAILY PO Last administered on 03/18/16 08:25; Admin Dose 10 MG; Start 03/18/16 at 09:00; Status Future Hold Diagnostic Test (Pha) (Accucheck) 1 ea 02 XX Last administered on 03/20/16 02: 12; Admin Dose 1 EA; Start 03/19/16 at 02:00 Miscellaneous Information 1 ea NOTE XX ; Start 03/18/16 at 06:30 Glucose (Glutose) 15 gm Q15M PRN PO DECREASED GLUCOSE; Start 03/18/16 at 06:30 Glucose (Glutose) 22.5 gm Q15M PRN PO DECREASED GLUCOSE; Start 03/18/16 at 06:30 Dextrose (D50w Syringe) 25 ml Q15M PRN IV DECREASED GLUCOSE; Start 03/18/16 at 06:30 Dextrose (D50w Syringe) 50 ml Q15M PRN IV DECREASED GLUCOSE; Start 03/18/16 at 06:30 Glucagon (Glucagen) 1 mg Q15M PRN IM DECREASED GLUCOSE; Start 03/18/16 at 06:30 Glucose (Glutose) 15 gm Q15M PRN BUCCAL DECREASED GLUCOSE; Start 03/18/16 at 06: 30 Insulin Glargine 24 unit 24 unit DAILY SC Last administered on 03/20/16 08:39; Admin Dose 24 UNIT; Start 03/19/16 at 09:00 Clindamycin HCl/ Dextrose (Cleocin 600 Mg/ D5W (Pmx)) 50 ml @ 50 mls/hr Q8H IVPB Last administered on 03/20/16 02:12; Admin Dose 50 MLS/HR; Start 03/18/16 at 19:00 Lactobacillus Acidoph/Bulgaricus (Floranex) 1 tab TID PO Last administered on 08:44; Admin Dose 1 TAB; Start 03/19/16 at 13:00 RHETT MIRANDA Mar 20, 2016 10:17
[2016-03-20] MEDS ORDERED: VANCOMYCIN IV PER PHARMACY XX SCH (12:00)
[2016-03-20] MEDS: REPAGLINIDE 2 MG TAB PO SCH ×2 (12:00→17:23)
[2016-03-20] MEDS ORDERED: REPAGLINIDE 1 MG TAB PO SCH (12:00)
--- NOTE | 2016-03-20 12:11 | PN ---
DATE: 03/20/2016 SUBJECTIVE: No events overnight. No fevers. The patient is lying comfortably in bed. LABORATORY DATA: WBC today decreased to 9.7, no shift. BUN 18, creatinine 0.95. MICROBIOLOGY: Right foot wound culture growing MRSA, Streptococcus agalactiae and alpha hemolytic s trep species. Blood cultures negative. Stool for C. diff negative. ANTIMICROBIALS: The patient is on: 1. Clindamycin. 2. Levaquin. PHYSICAL EXAMINATION: GENERAL: This is a well-developed, middle-aged man who is alert, in no distress. HEENT: Head atraumatic, normocephalic. Sclerae anicteric. Buccal mucosa pink. NECK: Supple, trachea midline. CHEST: Rise symmetrical. Breath sounds clear, diminished to bases. HEART: S1, S2. ABDOMEN: Soft, bowel tones present. EXTREMITIES: No cyanosis. Right foot dressing intact. ASSESSMENT: 1. Acute on chronic right foot diabetic ulcerations. 2. Diabetes. 3. Anemia. 4. History of substance abuse. PLAN: The patient remained stable. Podiatry evaluation pending. So far x-ray of the foot revealed no erosive changes. We are going to change antibiotics to IV vancomycin. Dictated By: TANESHA AGGARWAL LABOR ARBIT[employer] for DIM[facility] SERNA/RANDALL Conf#: [id number] DID#: [id number]
[2016-03-20] MEDS ORDERED: VANCOMYCIN 2 GM in SOD CHLORIDE 0.9% 500 ML IVPB SCH (14:00)
[2016-03-20 19:32] VITALS: BP 120/73; RESP 18
[2016-03-21] MEDS: VANCOMYCIN 1.5 GM in SOD CHLORIDE 0.9% 250 ML IVPB SCH ×2 (02:47→14:45)
[2016-03-21 07:47] LABS: BASOPHILS % 0.5 % (0.0-2.0); EOSINOPHILS # 0.4 10^3/ul (0.0-0.5); EOSINOPHILS % 4.1 % (0.0-7.0); HEMATOCRIT 37.7 % (42.0-52.0); HEMOGLOBIN 12.6 g/dl (14.0-18.0); LYMPHOCYTES # 1.9 10^3/ul (0.8-2.9); LYMPHOCYTES % 20.4 % (15.0-51.0); MEAN CORPUSCULAR HEMOGLOBIN 29.3 pg (29.0-33.0); MEAN CORPUSCULAR HGB CONC 33.5 g/dl (32.0-37.0); MEAN CORPUSCULAR VOLUME 87.4 fl (82.0-101.0); MEAN PLATELET VOLUME 7.9 fl (7.4-10.4); MONOCYTE # 0.8 10^3/ul (0.3-0.9); NEUTROPHIL # 6.4 10^3/ul (1.6-7.5); PLATELET COUNT 374 10^3/UL (140-440); RED BLOOD COUNT 4.31 10^6/ul (4.70-6.10); RED CELL DISTRIBUTION WIDTH 15.2 % (11.5-14.5); UNCORRECTED WBC 9.6 10^3/ul (4.8-10.8); WHITE BLOOD COUNT 9.6 10^3/ul (4.8-10.8)
[2016-03-21 07:56] LABS: CONDITION 1; LH ANALYZER COMMENTS 1
[2016-03-21 08:04] LABS: POTASSIUM 4.5 mmol/L (3.5-5.1)
[2016-03-21 08:07] VITALS: BP 121/77; RESP 20
[2016-03-21 08:07] LABS: CREATININE 0.94 mg/dl (0.61-1.24)
[2016-03-21 08:08] LABS: CALCIUM 9.1 mg/dl (8.4-10.2)
[2016-03-21] MEDS: INSULIN ASPART [NOVOLOG] 3 ML PEN SC SCH ×4 (08:19→21:00)
[2016-03-21] MEDS: GEMFIBROZIL 600 MG TAB PO SCH ×2 (08:33→21:19)
[2016-03-21] MEDS: FAMOTIDINE 20 MG TAB PO SCH ×2 (08:33→21:19)
[2016-03-21] MEDS: LACTOBACILLUS CHEW TAB PO SCH ×3 (08:33→21:19)
[2016-03-21] MEDS: REPAGLINIDE 2 MG TAB PO SCH ×3 (08:37→17:41)
[2016-03-21] MEDS: ENOXAPARIN 40 MG/0.4 ML SYG SC SCH (08:43)
[2016-03-21] MEDS: INSULIN GLARGINE [LANtus] 3 ML PEN SC SCH (08:44)
--- NOTE | 2016-03-21 09:54 | PN ---
Date/Time of Note Date/Time of Note DATE: 03/21/16 TIME: 09:52 Assessment/Plan VTE Prophylaxis VTE Prophylaxis Intervention: LMWH Lines/Catheters [facility]from [facility] Saline Lock Assessment/Plan Chief Complaint/Hosp Course ASSESSMENT AND PLAN: 45-year-old male with prior history of uncontrolled diabetes type 2 and right foot diabetic ulcer with prior osteomyelitis, who presents with right diabetic ulcer of the foot, worsening. 1. Right diabetic foot ulcer. - Continue broad spectrum antibiotics Vanco per ID - f/u podiatry and infectious disease consult rec's. - Follow up final culture results as well. - f/u MRI foot - pending - Consider surgical options versus medical treatment. 2. Uncontrolled type 2 diabetes. A1c = 10.4 - Continue Prandin 4 mg w/ meals and moderate insulin sliding scale and 30 U Lantus. - Holding metformin in case the patient needs any imaging studies with contrast. - DM educator 3. History of methamphetamine use - + meth again - monitor, rehabilitation counsellor about cessation 4. Normocytic normochromic anemia, presently H and H is stable. Continue to monitor for now. 5. History of high cholesterol, hypertriglyceridemia. Continue gemfibrozil. 6. Gastrointestinal prophylaxis. Pepcid. 7. Deep venous thrombosis prophylaxis, Lovenox. Problems: Subjective 24 Hr Interval Summary Free Text/Dictation No acute events overnight. FS improved. Awaiting foot MRI. Exam/Review of Systems Vital Signs Vitals Vital Signs Date Time Temp Pulse Resp B/P Pulse Ox O2 Delivery O2 Flow Rate FiO2 03/21/16 08:07 98.2 79 20 121/77 98 03/18/16 20:00 Room Air Intake and Output 03/20/16 03/20/16 03/21/16 15:00 23:00 07:00 Intake Total 1100 ml 120 ml Balance 1100 ml 120 ml Exam GENERAL: The patient is lying in bed, no acute distress. HEENT: Pupils equal, round, reactive to light. Extraocular muscles intact. There is some left-sided facial swelling but no bleeding noted. NECK: Supple, no thyromegaly. LUNGS: Clear to auscultation bilaterally. CARDIOVASCULAR: S1, S2 heard. No rubs or gallops. ABDOMEN: Soft, nontender, nondistended. Normal bowel sounds. No rebound or guarding. MUSCULOSKELETAL: Based on the right foot shows surrounding erythema and slightly warm to touch. + mild oozing from bandage, Ulcer is present. No lower extremity edema bilaterally. NEUROLOGIC: No focal deficits. Results Result Diagram: 03/21/16 0550 03/21/16 0550 Results 24 hrs Laboratory Tests Test 03/20/16 11:28 03/20/16 17:16 03/20/16 20:41 03/21/16 05:50 Bedside Glucose 169 132 131 Anion Gap 18 H Basophils # 0.0 Basophils % 0.5 Blood Morphology Comment Blood Urea Nitrogen 20 Calcium Level 9.1 Carbon Dioxide Level 25 Chloride Level 102 Creatinine 0.94 Eosinophils # 0.4 Eosinophils % 4.1 Glucose Level 132 # Hematocrit 37.7 L Hemoglobin 12.6 L Lymphocytes # 1.9 Lymphocytes % 20.4 Mean Corpuscular Hemoglobin 29.3 Mean Corpuscular Hemoglobin Concent 33.5 Mean Corpuscular Volume 87.4 Mean Platelet Volume 7.9 Monocytes # 0.8 Monocytes % 8.0 Neutrophils # 6.4 Neutrophils % 67.0 Nucleated Red Blood Cells # 0.0 Nucleated Red Blood Cells % 0.0 Platelet Count 374 Potassium Level 4.5 Red Blood Count 4.31 L Red Cell Distribution Width 15.2 H Sodium Level 140 White Blood Count 9.6 Test 03/21/16 08:13 Bedside Glucose 157 Medications Medications Current Medications Gemfibrozil (Lopid) 600 mg BID PO Last administered on 03/21/16 08:33; Admin Dose 600 MG; Start 03/18/16 at 09:00 Tramadol HCl (Ultram) 50 mg Q6H PRN PO PAIN Last administered on 03/18/16 18:06 ; Admin Dose 50 MG; Start 03/18/16 at 06:00 Morphine Sulfate (morphine) 2 mg Q4H PRN IV pain Last administered on 03/20/16 21:52; Admin Dose 2 MG; Start 03/18/16 at 06:00 Famotidine (Pepcid) 20 mg BID PO Last administered on 03/21/16 08:33; Admin Dose 20 MG; Start 03/18/16 at 09:00 Enoxaparin Sodium (Lovenox) 40 mg DAILY SC Last administered on 03/21/16 08:43 ; Admin Dose 40 MG; Start 03/18/16 at 09:00 Lisinopril (Zestril) 10 mg DAILY PO Last administered on 03/18/16 08:25; Admin Dose 10 MG; Start 03/18/16 at 09:00; Status Future Hold Diagnostic Test (Pha) (Accucheck) 1 ea 02 XX Last administered on 03/20/16 02: 12; Admin Dose 1 EA; Start 03/19/16 at 02:00 Miscellaneous Information 1 ea NOTE XX ; Start 03/18/16 at 06:30 Glucose (Glutose) 15 gm Q15M PRN PO DECREASED GLUCOSE; Start 03/18/16 at 06:30 Glucose (Glutose) 22.5 gm Q15M PRN PO DECREASED GLUCOSE; Start 03/18/16 at 06:30 Dextrose (D50w Syringe) 25 ml Q15M PRN IV DECREASED GLUCOSE; Start 03/18/16 at 06:30 Dextrose (D50w Syringe) 50 ml Q15M PRN IV DECREASED GLUCOSE; Start 03/18/16 at 06:30 Glucagon (Glucagen) 1 mg Q15M PRN IM DECREASED GLUCOSE; Start 03/18/16 at 06:30 Glucose (Glutose) 15 gm Q15M PRN BUCCAL DECREASED GLUCOSE; Start 03/18/16 at 06: 30 Lactobacillus Acidoph/ Bulgaricus 1 tab 1 tab TID PO Last administered on 08:33; Admin Dose 1 TAB; Start 03/19/16 at 13:00 Vancomycin HCl/ Sodium Chloride (Vancocin/NS) 250 ml @ 83.333 mls/ hr Q12H IVPB Last administered on 03/21/16 02:47; Admin Dose 83.333 MLS/HR; Start at 02:30 Insulin Glargine (Lantus) 30 unit DAILY SC Last administered on 03/21/16 08:44 ; Admin Dose 30 UNIT; Start 03/21/16 at 09:00 RHETT MIRANDA Mar 21, 2016 09:54
--- NOTE | 2016-03-21 12:25 | CONS ---
Date/Time of Note Date/Time of Note DATE: 03/21/16 TIME: 12:23 Consult Date/Type/Reason Admit Date/Time Mar 18, 2016 at 05:15 Initial Consult Date Type of Consultation: id Subjective no acute changes, no fevers, nad Objective Vital Signs Date Time Temp Pulse Resp B/P Pulse Ox O2 Delivery O2 Flow Rate FiO2 03/21/16 08:07 98.2 79 20 121/77 98 03/18/16 20:00 Room Air Intake and Output 03/20/16 03/20/16 03/21/16 14:59 22:59 06:59 Intake Total 150 ml 1100 ml 120 ml Balance 150 ml 1100 ml 120 ml Results/Medications Result Diagram: 03/21/16 0550 03/21/16 0550 Results 24 hrs Laboratory Tests Test 03/20/16 17:16 03/20/16 20:41 03/21/16 05:50 03/21/16 08:13 Bedside Glucose 132 131 157 Anion Gap 18 H Basophils # 0.0 Basophils % 0.5 Blood Morphology Comment Blood Urea Nitrogen 20 Calcium Level 9.1 Carbon Dioxide Level 25 Chloride Level 102 Creatinine 0.94 Eosinophils # 0.4 Eosinophils % 4.1 Glucose Level 132 # Hematocrit 37.7 L Hemoglobin 12.6 L Lymphocytes # 1.9 Lymphocytes % 20.4 Mean Corpuscular Hemoglobin 29.3 Mean Corpuscular Hemoglobin Concent 33.5 Mean Corpuscular Volume 87.4 Mean Platelet Volume 7.9 Monocytes # 0.8 Monocytes % 8.0 Neutrophils # 6.4 Neutrophils % 67.0 Nucleated Red Blood Cells # 0.0 Nucleated Red Blood Cells % 0.0 Platelet Count 374 Potassium Level 4.5 Red Blood Count 4.31 L Red Cell Distribution Width 15.2 H Sodium Level 140 White Blood Count 9.6 Medications Current Medications Gemfibrozil (Lopid) 600 mg BID PO Last administered on 03/21/16 08:33; Admin Dose 600 MG; Start 03/18/16 at 09:00 Tramadol HCl (Ultram) 50 mg Q6H PRN PO PAIN Last administered on 03/18/16 18:06 ; Admin Dose 50 MG; Start 03/18/16 at 06:00 Morphine Sulfate (morphine) 2 mg Q4H PRN IV pain Last administered on 03/20/16 21:52; Admin Dose 2 MG; Start 03/18/16 at 06:00 Famotidine (Pepcid) 20 mg BID PO Last administered on 03/21/16 08:33; Admin Dose 20 MG; Start 03/18/16 at 09:00 Enoxaparin Sodium (Lovenox) 40 mg DAILY SC Last administered on 03/21/16 08:43 ; Admin Dose 40 MG; Start 03/18/16 at 09:00 Lisinopril (Zestril) 10 mg DAILY PO Last administered on 03/18/16 08:25; Admin Dose 10 MG; Start 03/18/16 at 09:00; Status Future Hold Diagnostic Test (Pha) (Accucheck) 1 ea 02 XX Last administered on 03/20/16 02: 12; Admin Dose 1 EA; Start 03/19/16 at 02:00 Miscellaneous Information 1 ea NOTE XX ; Start 03/18/16 at 06:30 Glucose (Glutose) 15 gm Q15M PRN PO DECREASED GLUCOSE; Start 03/18/16 at 06:30 Glucose (Glutose) 22.5 gm Q15M PRN PO DECREASED GLUCOSE; Start 03/18/16 at 06:30 Dextrose (D50w Syringe) 25 ml Q15M PRN IV DECREASED GLUCOSE; Start 03/18/16 at 06:30 Dextrose (D50w Syringe) 50 ml Q15M PRN IV DECREASED GLUCOSE; Start 03/18/16 at 06:30 Glucagon (Glucagen) 1 mg Q15M PRN IM DECREASED GLUCOSE; Start 03/18/16 at 06:30 Glucose (Glutose) 15 gm Q15M PRN BUCCAL DECREASED GLUCOSE; Start 03/18/16 at 06: 30 Lactobacillus Acidoph/ Bulgaricus 1 tab 1 tab TID PO Last administered on 08:33; Admin Dose 1 TAB; Start 03/19/16 at 13:00 Vancomycin HCl/ Sodium Chloride (Vancocin/NS) 250 ml @ 83.333 mls/ hr Q12H IVPB Last administered on 03/21/16 02:47; Admin Dose 83.333 MLS/HR; Start at 02:30 Insulin Glargine (Lantus) 30 unit DAILY SC Last administered on 03/21/16 08:44 ; Admin Dose 30 UNIT; Start 03/21/16 at 09:00 Assessment/Plan Chief Complaint/Hosp Course MICROBIOLOGY: Right foot wound culture growing MRSA, Streptococcus agalactiae and, Corynebact grp JK alpha hemolytic strep species. Blood cultures negative. Stool for C. diff negative. ANTIMICROBIALS: Vancomycin PHYSICAL EXAMINATION: GENERAL: This is a well-developed, middle-aged man who is alert, in no distress. HEENT: Head atraumatic, normocephalic. Sclerae anicteric. Buccal mucosa pink. NECK: Supple, trachea midline. CHEST: Rise symmetrical. Breath sounds clear, diminished to bases. HEART: S1, S2. ABDOMEN: Soft, bowel tones present. EXTREMITIES: No cyanosis. Right foot dressing intact. ASSESSMENT: 1. Acute on chronic right foot diabetic ulcerations. 2. Diabetes. 3. Anemia. 4. History of substance abuse. PLAN: The patient remained stable. Podiatry follows, pending MRI and possible debridement. FAY Luo Problems: TANESHA AGGARWAL NP Mar 21, 2016 12:25
--- NOTE | 2016-03-21 12:27 | RADRPT ---
PROCEDURE: MRI OF THE RIGHT FOOT CLINICAL INDICATION: Right foot pain and swelling, concern for osteomyelitis, major ulceration metat arsophalangeal joint with an additional small ulcer at the heel TECHNIQUE: Multiple MRI images were obtained utilizing multiple sequences in multiple planes. Image s were interpreted on a high-resolution PACS system. COMPARISON: Radiographs of the right foot dated March 18, 2016 and MRI of the right ankle dated 2015 and MRI of the right ankle dated October 03, 2014 FINDINGS: Dedicated imaging of the heel demonstrates a plantar skin ulceration with soft tissue swelling exten ding towards the central cord of the plantar fascia near the calcaneal origin (sagittal 9). Minimal bone marrow edema is seen within a small plantar calcaneal enthesophyte, not definitive for osteomy elitis at this time. Overall the marrow signal is similar to slightly improved from the prior MRI o f the heel. There is severe tendinosis and fascial fraying involving the central cord of the planta r fascia, which appears somewhat progressed from the previous examination. There is no drainable fl uid collection. There is mild to moderate degenerative change of the tibiotalar joint with chondral loss greatest posteriorly at the talar dome and small marginal osteophytes. Chronic low lateral an d deep deltoid ligament sprains are noted. Tendons at the ankle are grossly unremarkable. Dedicated imaging of the right foot shows regions of soft tissue swelling and inflammation near the first, second, and fifth metatarsophalangeal joints (axial 18). There is no definite drainable flui d collection is seen at these locations though the adventitial fibrosis and bursitis near the fifth metatarsophalangeal joint is fairly prominent. The adjacent osseous structures show no definite maite dence of osteomyelitis at this time. There is a small relatively chronic appearing cystic change wi thin the second metatarsal head (axial 17) which appears less likely to represent acute osteomyeliti s. The visualized flexor extensor tendons are intact. There is nonspecific subcutaneous soft tissu e swelling. There is also intrinsic foot muscle atrophy and edema. IMPRESSION: 1. Plantar soft tissue ulceration near the calcaneus with adjacent soft tissue swelling and progress beny tendinosis/fraying of the central cord of the plantar fascia. No definite underlying osteomyeli tis is seen at this time though there is a minimal nonspecific edema within a small plantar calcanea l enthesophyte. 2. Plantar soft tissue swelling and bursitis/fibrosis near the first, second, and fifth metatarsal h [place]. Correlate clinically for any adjacent skin ulcerations. No definite adjacent osteomyelitis i s seen though there is a small nonspecific probable cyst within the second metatarsal head laterally . If this is a site of clinical concern, repeat imaging 1-2 weeks can be considered for further hipolito luation and to exclude osteomyelitis at this location. 3. 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 4. Subcutaneous soft tissue swelling without drainable fluid collection. RPTAT: UU .lEmer Lindsey MD, MD Date Time Electronically viewed and signed by .Elmer Lindsey MD, on 03/21/2016 12:27 .K/
[2016-03-21 20:10] VITALS: BP 125/82; RESP 16
[2016-03-21] MEDS: morphine 2 MG INJ IV PRN (21:23)
[2016-03-22] MEDS: ACCUCHECK AT 2AM (Patients on SS coverage) XX SCH (02:00)
[2016-03-22] MEDS: VANCOMYCIN 1.5 GM in SOD CHLORIDE 0.9% 250 ML IVPB SCH ×2 (02:40→14:30)
[2016-03-22 07:24] VITALS: BP 117/73; RESP 20
[2016-03-22] MEDS: INSULIN ASPART [NOVOLOG] 3 ML PEN SC SCH ×4 (07:47→21:00)
[2016-03-22] MEDS: REPAGLINIDE 2 MG TAB PO SCH ×3 (09:05→16:54)
[2016-03-22] MEDS: FAMOTIDINE 20 MG TAB PO SCH ×2 (09:05→21:00)
[2016-03-22] MEDS: GEMFIBROZIL 600 MG TAB PO SCH ×2 (09:05→21:00)
[2016-03-22] MEDS: LACTOBACILLUS CHEW TAB PO SCH ×3 (09:05→21:00)
[2016-03-22] MEDS: INSULIN GLARGINE [LANtus] 3 ML PEN SC SCH (09:17)
[2016-03-22] MEDS: ENOXAPARIN 40 MG/0.4 ML SYG SC SCH (09:17)
--- NOTE | 2016-03-22 10:17 | PN ---
Date/Time of Note Date/Time of Note DATE: 03/22/16 TIME: 10:07 Assessment/Plan VTE Prophylaxis VTE Prophylaxis Intervention: LMWH Lines/Catheters IV [facility] (from [facility] Saline Lock Assessment/Plan Chief Complaint/Hosp Course ASSESSMENT AND PLAN: 45-year-old male with prior history of uncontrolled diabetes type 2 and right foot diabetic ulcer with prior osteomyelitis, who presents with right diabetic ulcer of the foot, worsening. 1. Right diabetic foot ulcer - MRI foot is neg for osteomyelitis, although some bursitis and osteoarthrosis present. - Continue broad spectrum antibiotics Vanco per ID - f/u podiatry and infectious disease consult rec's - plan for possible foot I+D per communication with podiatry team 2 days ago. - Follow up final culture results as well. - Consider surgical options versus medical treatment vs I+D. 2. Uncontrolled type 2 diabetes. A1c = 10.4. Sugars improved now. - Continue Prandin 4 mg w/ meals and moderate insulin sliding scale and 30 U Lantus. - Holding metformin in case the patient needs any imaging studies with contrast. - DM educator 3. History of methamphetamine use: + meth again - monitor, general counselor about cessation 4. Normocytic normochromic anemia, presently H and H is stable. Continue to monitor for now. 5. History of high cholesterol, hypertriglyceridemia. Continue gemfibrozil. 6. Gastrointestinal prophylaxis. Pepcid. 7. Deep venous thrombosis prophylaxis, Lovenox. Problems: Subjective 24 Hr Interval Summary Free Text/Dictation Pt had MRI foot yesterday. Still waiting for possible I+D of foot. Exam/Review of Systems Vital Signs Vitals Vital Signs Date Time Temp Pulse Resp B/P Pulse Ox O2 Delivery O2 Flow Rate FiO2 03/22/16 07:24 98.3 71 20 117/73 95 03/18/16 20:00 Room Air Intake and Output 03/21/16 03/21/16 03/22/16 15:00 23:00 07:00 Intake Total 250 ml 1090 ml 650 ml Output Total 1200 ml 800 ml Balance 250 ml -110 ml -150 ml Exam GENERAL: The patient is lying in bed, no acute distress. HEENT: Pupils equal, round, reactive to light. Extraocular muscles intact. There is some left-sided facial swelling but no bleeding noted. NECK: Supple, no thyromegaly. LUNGS: Clear to auscultation bilaterally. CARDIOVASCULAR: S1, S2 heard. No rubs or gallops. ABDOMEN: Soft, nontender, nondistended. Normal bowel sounds. No rebound or guarding. MUSCULOSKELETAL: Based on the right foot shows surrounding erythema and slightly warm to touch. + mild oozing from bandage, Ulcer is present. No lower extremity edema bilaterally. NEUROLOGIC: No focal deficits. Results Result Diagram: 03/21/16 0550 03/21/16 0550 Results 24 hrs Laboratory Tests Test 03/21/16 12:24 03/21/16 17:18 03/21/16 21:18 03/22/16 07:41 Bedside Glucose 182 158 175 131 Medications Medications Current Medications Gemfibrozil (Lopid) 600 mg BID PO Last administered on 03/22/16 09:05; Admin Dose 600 MG; Start 03/18/16 at 09:00 Tramadol HCl (Ultram) 50 mg Q6H PRN PO PAIN Last administered on 03/18/16 18:06 ; Admin Dose 50 MG; Start 03/18/16 at 06:00 Morphine Sulfate (morphine) 2 mg Q4H PRN IV pain Last administered on 03/21/16 21:23; Admin Dose 2 MG; Start 03/18/16 at 06:00 Famotidine (Pepcid) 20 mg BID PO Last administered on 03/22/16 09:05; Admin Dose 20 MG; Start 03/18/16 at 09:00 Enoxaparin Sodium (Lovenox) 40 mg DAILY SC Last administered on 03/22/16 09:17 ; Admin Dose 40 MG; Start 03/18/16 at 09:00 Lisinopril (Zestril) 10 mg DAILY PO Last administered on 03/18/16 08:25; Admin Dose 10 MG; Start 03/18/16 at 09:00; Status Future Hold Diagnostic Test (Pha) (Accucheck) 1 ea 02 XX Last administered on 03/20/16 02: 12; Admin Dose 1 EA; Start 03/19/16 at 02:00 Miscellaneous Information 1 ea NOTE XX ; Start 03/18/16 at 06:30 Glucose (Glutose) 15 gm Q15M PRN PO DECREASED GLUCOSE; Start 03/18/16 at 06:30 Glucose (Glutose) 22.5 gm Q15M PRN PO DECREASED GLUCOSE; Start 03/18/16 at 06:30 Dextrose (D50w Syringe) 25 ml Q15M PRN IV DECREASED GLUCOSE; Start 03/18/16 at 06:30 Dextrose (D50w Syringe) 50 ml Q15M PRN IV DECREASED GLUCOSE; Start 03/18/16 at 06:30 Glucagon (Glucagen) 1 mg Q15M PRN IM DECREASED GLUCOSE; Start 03/18/16 at 06:30 Glucose (Glutose) 15 gm Q15M PRN BUCCAL DECREASED GLUCOSE; Start 03/18/16 at 06: 30 Lactobacillus Acidoph/ Bulgaricus 1 tab 1 tab TID PO Last administered on 09:05; Admin Dose 1 TAB; Start 03/19/16 at 13:00 Vancomycin HCl/ Sodium Chloride (Vancocin/NS) 250 ml @ 83.333 mls/ hr Q12H IVPB Last administered on 03/22/16 02:40; Admin Dose 83.333 MLS/HR; Start at 02:30 Insulin Glargine (Lantus) 30 unit DAILY SC Last administered on 03/22/16 09:17 ; Admin Dose 30 UNIT; Start 03/21/16 at 09:00 Miscellaneous Information (*Order Clarification Bulletin) VANCOMYCIN TROUGH LEVEL AT 1... Q8H XX ; Start 03/22/16 at 13:30 RHETT MIRANDA Mar 22, 2016 10:16
--- NOTE | 2016-03-22 13:39 | CONS ---
Date/Time of Note Date/Time of Note DATE: 03/22/16 TIME: 13:37 Consult Date/Type/Reason Admit Date/Time Mar 18, 2016 at 05:15 Type of Consultation: id Subjective no events, MRI report noted, no fevers Objective Vital Signs Date Time Temp Pulse Resp B/P Pulse Ox O2 Delivery O2 Flow Rate FiO2 03/22/16 07:24 98.3 71 20 117/73 95 03/18/16 20:00 Room Air Intake and Output 03/21/16 03/21/16 03/22/16 14:59 22:59 06:59 Intake Total 250 ml 1090 ml 650 ml Output Total 1200 ml 800 ml Balance 250 ml -110 ml -150 ml Results/Medications Result Diagram: 03/21/16 0550 03/21/16 0550 Results 24 hrs Laboratory Tests Test 03/21/16 17:18 03/21/16 21:18 03/22/16 07:41 03/22/16 11:57 Bedside Glucose 158 175 131 176 Medications Current Medications Gemfibrozil (Lopid) 600 mg BID PO Last administered on 03/22/16 09:05; Admin Dose 600 MG; Start 03/18/16 at 09:00 Tramadol HCl (Ultram) 50 mg Q6H PRN PO PAIN Last administered on 03/18/16 18:06 ; Admin Dose 50 MG; Start 03/18/16 at 06:00 Morphine Sulfate (morphine) 2 mg Q4H PRN IV pain Last administered on 03/21/16 21:23; Admin Dose 2 MG; Start 03/18/16 at 06:00 Famotidine (Pepcid) 20 mg BID PO Last administered on 03/22/16 09:05; Admin Dose 20 MG; Start 03/18/16 at 09:00 Enoxaparin Sodium (Lovenox) 40 mg DAILY SC Last administered on 03/22/16 09:17 ; Admin Dose 40 MG; Start 03/18/16 at 09:00 Lisinopril (Zestril) 10 mg DAILY PO Last administered on 03/18/16 08:25; Admin Dose 10 MG; Start 03/18/16 at 09:00; Status Future Hold Diagnostic Test (Pha) (Accucheck) 1 ea 02 XX Last administered on 1/4/17at 02: 12; Admin Dose 1 EA; Start 03/19/16 at 02:00 Miscellaneous Information 1 ea NOTE XX ; Start 03/18/16 at 06:30 Glucose (Glutose) 15 gm Q15M PRN PO DECREASED GLUCOSE; Start 03/18/16 at 06:30 Glucose (Glutose) 22.5 gm Q15M PRN PO DECREASED GLUCOSE; Start 03/18/16 at 06:30 Dextrose (D50w Syringe) 25 ml Q15M PRN IV DECREASED GLUCOSE; Start 03/18/16 at 06:30 Dextrose (D50w Syringe) 50 ml Q15M PRN IV DECREASED GLUCOSE; Start 03/18/16 at 06:30 Glucagon (Glucagen) 1 mg Q15M PRN IM DECREASED GLUCOSE; Start 03/18/16 at 06:30 Glucose (Glutose) 15 gm Q15M PRN BUCCAL DECREASED GLUCOSE; Start 03/18/16 at 06: 30 Lactobacillus Acidoph/ Bulgaricus 1 tab 1 tab TID PO Last administered on 11:58; Admin Dose 1 TAB; Start 03/19/16 at 13:00 Vancomycin HCl/ Sodium Chloride (Vancocin/NS) 250 ml @ 83.333 mls/ hr Q12H IVPB Last administered on 03/22/16 02:40; Admin Dose 83.333 MLS/HR; Start at 02:30 Insulin Glargine (Lantus) 30 unit DAILY SC Last administered on 03/22/16 09:17 ; Admin Dose 30 UNIT; Start 03/21/16 at 09:00 Miscellaneous Information (*Order Clarification Bulletin) VANCOMYCIN TROUGH LEVEL AT 1... Q8H XX ; Start 03/22/16 at 13:30 Assessment/Plan Chief Complaint/Hosp Course MICROBIOLOGY: Right foot wound culture growing MRSA, Streptococcus agalactiae and, Corynebact grp JK alpha hemolytic strep species. Blood cultures negative. Stool for C. diff negative. ANTIMICROBIALS: Vancomycin PHYSICAL EXAMINATION: GENERAL: This is a well-developed, middle-aged man who is alert, in no distress. HEENT: Head atraumatic, normocephalic. Sclerae anicteric. Buccal mucosa pink. NECK: Supple, trachea midline. CHEST: Rise symmetrical. Breath sounds clear, diminished to bases. HEART: S1, S2. ABDOMEN: Soft, bowel tones present. EXTREMITIES: No cyanosis. Right foot dressing intact. ASSESSMENT: 1. Acute on chronic right foot diabetic ulcerations=>no evidence for OM per MRI. 2. Diabetes. 3. Anemia. 4. History of substance abuse. PLAN: The patient remained stable, continue abx, f/u podiatry rec-s [facility] staff Problems: TANESHA AGGARWAL NP Mar 22, 2016 13:39
[2016-03-22] MEDS: morphine 2 MG INJ IV PRN (14:30)
--- NOTE | 2016-03-22 19:16 | CONS ---
Date/Time of Note Date/Time of Note DATE: 03/19/16 TIME: 21:02 Assessment/Plan Assessment/Plan Problems: (1) Non-pressure chronic ulcer of other part of right foot with necrosis of bone Comment: Santyl ointment to the open wounds daily. Non weight bearing right foot. I will arrange for bedside debridement of the wound. Will follow inhouse. Thank you again for involving me in the care of this patient. If you have any questions regarding this case, please feel free to contact me at pager: [phone] or reach me at mobile: [phone]. (2) Diabetes, polyneuropathy (3) Diabetes mellitus type 2 with neurological manifestations Status: Chronic Consultation Date/Type/Reason Admit Date/Time Mar 18, 2016 at 05:15 Date of Consultation: Mar 19, 2016 Type of Consultation: Foot and ankle surgery Reason for Consultation Right foot open wound and infection. Hx of Present Illness Thank you very much for involving me in the care of this patient. As you very well know this is a 45-year-old male patient with multiple medical problems including diabetes mellitus type 2 with peripheral neuropathy and peripheral vascular disease, dyslipidemia and chronic right foot infection. Patient reports that he has tried to take care of his wound as best as he can but he has developed a second wound which is bleeding. Denies trauma to the area and reports no specific medical treatment for this new wound. He says that the wound started about 7 or 8 days ago and developed into an abscess which he popped and had some white drainage. Patient was admitted for infection of the right foot and I was consulted for evaluation and treatment. As per history of present illness. Past Medical History As per history of present illness. Past Surgical History As per history of present illness. Social History Smoking Status: Never smoker Exam/Review of Systems Vital Signs Vitals Vital Signs Date Time Temp Pulse Resp B/P Pulse Ox O2 Delivery O2 Flow Rate FiO2 03/19/16 20:55 97.9 84 18 121/74 93 03/18/16 20:00 Room Air Intake and Output 03/18/16 03/18/16 03/19/16 15:00 23:00 07:00 Intake Total 200 ml 650 ml 530 ml Balance 200 ml 650 ml 530 ml Exam GENERAL APPEARANCE: Patient is in no acute distress laying supine in bed VASCULAR EXAM: Dorsalis pedis and posterior tibial pulse weakly palpable bilaterally. Normal capillary filling time noted on exam. Normal temperature gradient noted on exam. Mild edema of the right foot noted. No edema of the left lower extremity noted. No varicose veins noted on examination NEUROLOGICAL EXAM: Protective sensation is diminished to sharp, dull, vibratory and temperature stimuli bilaterally. Normal deep tendon reflexes noted. Negative Tinel sign on examination of bilateral lower extremity DERMATOLOGICAL EXAM: Open wound plantar second and third MPJ area with significant hyperkeratosis and mild erythema surrounding the wound. The wound does not probe to bone and there is no malodor present. There is no drainage of pus and no bleeding noted. The wound is nontender to palpation. Second wound present on the plantar central aspect of the right heel with surrounding hyperkeratosis. The base of the wound is dry granulation tissue. No erythema noted at the heel. No open wound noted on the left lower extremity MUSCULOSKELETAL EXAM: Rectus foot type bilaterally with contracted toes. Normal muscle power bilateral lower extremities IMAGING: Reviewed in chart LABS: Reviewed in chart Results Result Diagram: 03/19/16 0457 03/19/16 0457 Results 24 hrs Laboratory Tests Test 03/19/16 04:57 03/19/16 07:41 03/19/16 11:49 03/19/16 17:39 Anion Gap 15 Basophils # 0.1 Basophils % 0.4 Blood Morphology Comment Blood Urea Nitrogen 14 Calcium Level 8.9 Carbon Dioxide Level 30 Chloride Level 98 Creatinine 0.97 Eosinophils # 0.3 Eosinophils % 2.8 Glucose Level 173 # Hematocrit 35.8 L Hemoglobin 12.0 L Hemoglobin A1c 10.4 H Lymphocytes # 2.6 Lymphocytes % 21.5 Magnesium Level 1.8 Mean Corpuscular Hemoglobin 29.2 Mean Corpuscular Hemoglobin Concent 33.5 Mean Corpuscular Volume 87.3 Mean Platelet Volume 8.0 Monocytes # 1.1 H Monocytes % 9.5 Neutrophils # 7.9 H Neutrophils % 65.8 Nucleated Red Blood Cells # 0.0 Nucleated Red Blood Cells % 0.0 Platelet Count 345 Potassium Level 4.4 Red Blood Count 4.10 L Red Cell Distribution Width 14.8 H Sodium Level 139 White Blood Count 12.1 H Bedside Glucose 225 H 184 204 Test 03/19/16 20:45 Bedside Glucose 269 H Medications Medications Current Medications Gemfibrozil (Lopid) 600 mg BID PO Last administered on 03/19/16 20:43; Admin Dose 600 MG; Start 03/18/16 at 09:00 Tramadol HCl (Ultram) 50 mg Q6H PRN PO PAIN Last administered on 03/18/16 18:06 ; Admin Dose 50 MG; Start 03/18/16 at 06:00 Morphine Sulfate 2 mg 2 mg Q4H PRN IV pain Last administered on 03/19/16 20:50 ; Admin Dose 2 MG; Start 03/18/16 at 06:00 Levofloxacin/ Dextrose (Levaquin 750 Mg/ D5W 150 ml (Pmx)) 150 ml @ 100 mls/hr Q24H IVPB Last administered on 03/19/16 06:06; Admin Dose 100 MLS/HR; Start 03/18/16 at 06:00 Famotidine (Pepcid) 20 mg BID PO Last administered on 03/19/16 20:43; Admin Dose 20 MG; Start 03/18/16 at 09:00 Enoxaparin Sodium (Lovenox) 40 mg DAILY SC Last administered on 03/19/16 08:30 ; Admin Dose 40 MG; Start 03/18/16 at 09:00 Lisinopril (Zestril) 10 mg DAILY PO Last administered on 03/18/16 08:25; Admin Dose 10 MG; Start 03/18/16 at 09:00; Status Future Hold Diagnostic Test (Pha) (Accucheck) 1 ea 02 XX ; Start 03/19/16 at 02:00 Miscellaneous Information 1 ea NOTE XX ; Start 03/18/16 at 06:30 Glucose (Glutose) 15 gm Q15M PRN PO DECREASED GLUCOSE; Start 03/18/16 at 06:30 Glucose (Glutose) 22.5 gm Q15M PRN PO DECREASED GLUCOSE; Start 03/18/16 at 06:30 Dextrose (D50w Syringe) 25 ml Q15M PRN IV DECREASED GLUCOSE; Start 03/18/16 at 06:30 Dextrose (D50w Syringe) 50 ml Q15M PRN IV DECREASED GLUCOSE; Start 03/18/16 at 06:30 Glucagon (Glucagen) 1 mg Q15M PRN IM DECREASED GLUCOSE; Start 03/18/16 at 06:30 Glucose (Glutose) 15 gm Q15M PRN BUCCAL DECREASED GLUCOSE; Start 03/18/16 at 06: 30 Insulin Glargine 24 unit 24 unit DAILY SC Last administered on 03/19/16 08:39; Admin Dose 24 UNIT; Start 03/19/16 at 09:00 Clindamycin HCl/ Dextrose (Cleocin 600 Mg/ D5W (Pmx)) 50 ml @ 50 mls/hr Q8H IVPB Last administered on 03/19/16 18:30; Admin Dose 50 MLS/HR; Start 03/18/16 at 19:00 Lactobacillus Acidoph/Bulgaricus (Floranex) 1 tab TID PO Last administered on 20:43; Admin Dose 1 TAB; Start 03/19/16 at 13:00 JOVANNY SMITH DPM Mar 19, 2016 21:12
--- NOTE | 2016-03-22 19:18 | PN ---
Date/Time of Note Date/Time of Note DATE: 03/22/16 TIME: 19:16 Assessment/Plan Lines/Catheters IV C[facility]ter Type (from [facility] Saline Lock Assessment/Plan Problems: (1) Non-pressure chronic ulcer of other part of right foot with necrosis of bone Comment: Sharp debridement at the bedside was done with aseptic technique. Santyl was applied to the wound with dry dressing. Patient may be discharged home. Patient will require wound care follow-up. Advised patient that he is at risk for limb loss. (2) Diabetic ulcer of both feet Status: Acute (3) Diabetes mellitus type 2 with neurological manifestations Status: Chronic Subjective 24 Hr Interval Summary Patient was seen at bedside. Patient is in no acute distress. Patient reports no new adverse events. Patient denies fever, chills, nausea or vomiting. Patient denies pain. Patient denies recent trauma. Patient reports bandages are being changed as directed. Patient does not report any new problems. Constitutional: no complaints Pain Control: well controlled Exam/Review of Systems Vital Signs Vitals Vital Signs Date Time Temp Pulse Resp B/P Pulse Ox O2 Delivery O2 Flow Rate FiO2 03/22/16 07:24 98.3 71 20 117/73 95 03/18/16 20:00 Room Air Intake and Output 03/21/16 03/21/16 03/22/16 15:00 23:00 07:00 Intake Total 250 ml 1090 ml 650 ml Output Total 1200 ml 800 ml Balance 250 ml -110 ml -150 ml Exam Free Text/Dictation GENERAL APPEARANCE: Patient is in no acute distress laying supine in bed VASCULAR EXAM: Dorsalis pedis and posterior tibial pulse weakly palpable bilaterally. Normal capillary filling time noted on exam. Normal temperature gradient noted on exam. Edema of the right foot is diminished significantly since his last visit. No varicose veins noted on examination NEUROLOGICAL EXAM: Protective sensation is diminished to sharp, dull, vibratory and temperature stimuli bilaterally. Normal deep tendon reflexes noted. Negative Tinel sign on examination of bilateral lower extremity DERMATOLOGICAL EXAM: Open wound is improved on the right central heel and has no drainage and no pus. Open wound on the MPJ area is also improved with no erythema. There is significant dry skin present which was sharply debrided using a #15 blade MUSCULOSKELETAL EXAM: Rectus foot type with contracted toes continues. No other changes noted IMAGING: Reviewed in chart LABS: Reviewed in chart Results Result Diagram: 03/21/16 0550 03/21/16 0550 JOVANNY SMITH DPM Mar 22, 2016 19:18
[2016-03-22 19:57] VITALS: BP 119/72; RESP 16
--- NOTE | 2016-03-23 11:08 | DS ---
Date/Time of Note Date/Time of Note DATE: 03/23/16 TIME: 11:08 Discharge Summary Admission/Discharge Info Admit Date/Time Mar 18, 2016 at 05:15 Discharge Date/Time Mar 22, 2016 at 20:30 Final Diagnosis s/p I+D of DM foot, uncontrolled DM-2 - left AMA Hospital Course left AMA Home Meds Active Scripts Levofloxacin* (Levaquin*) 500 Mg Tablet, 500 MG PO DAILY@06 for 42 Days, TAB x6 weeks Prov:TED WISDOM NP 10/17/15 Insulin Glargine* (Lantus*) 100 Unit/Ml Soln, 24 UNIT SC DAILY for 30 Days Prov:TED WISDOM NP 10/17/15 Tramadol HCl (Tramadol HCl) 50 Mg Tab, 50 MG PO Q6H Y for PAIN, #20 TAB Prov:WILTON NANCE 12/16/14 Repaglinide* (Prandin*) 2 Mg Tablet, 2 MG PO AC MEALS for 30 Days, TAB Prov:WILTON NANCE 12/16/14 Metformin Hcl (Glucophage) 500 Mg Tab, 1000 MG PO WITH BREAKFAST DINNE for 30 Days Prov:WILTON NANCE 12/16/14 Gemfibrozil* (Lopid*) 600 Mg Tab, 600 MG PO BID for 30 Days Prov:WLITON NANCE 12/16/14 Pending Labs Laboratory Tests Test 03/22/16 11:57 03/22/16 13:15 03/22/16 16:53 Bedside Glucose 176mg/dL (70-220) 120mg/dL (70-220) Vancomycin Level Trough 14.8ug/ml (10.0-20.0) RHETT MIRANDA Mar 23, 2016 11:08
== END 2016-03-22 20:30 | disposition left against medical advice (07) | DRG 638 ==
LOC: E/R 02:03 → MS2 05:15
PROVIDERS: ADMIT Family Medicine; ATTEND Family Medicine
DX: E11.621 Type 2 diabetes mellitus with foot ulcer (principal); L97.924 Non-pressure chronic ulcer of unspecified part of left lower leg with necrosis of bone; E11.42 Type 2 diabetes mellitus with diabetic polyneuropathy; L03.115 Cellulitis of right lower limb; E11.65 Type 2 diabetes mellitus with hyperglycemia; Z91.19 Patient's noncompliance with other medical treatment and regimen; E78.5 Hyperlipidemia, unspecified; E78.1 Pure hyperglyceridemia; F15.10 Other stimulant abuse, uncomplicated; D63.8 Anemia in other chronic diseases classified elsewhere; B95.62 Methicillin resistant Staphylococcus aureus infection as the cause of diseases classified elsewhere; B95.1 Streptococcus, group B, as the cause of diseases classified elsewhere; B96.89 Other specified bacterial agents as the cause of diseases classified elsewhere; E11.628 Type 2 diabetes mellitus with other skin complications
CPT/HCPCS: 36415; 71010; 73630; 73718; 80048; 80053; 80202; 80307; 81003; 82962; 83036; 83605; 83735; 84484; 85025; 85610; 85730; 87040; 87070; 87075; 90686; 96372; 96374; 96375; J1650; J1815; J1956; J2270; J2405; J3370; J7030; J7040; J7050

== ENCOUNTER 2016-06-07 13:37 | Emergency (ER) | payer MEDICAID ==
[~2016-06-07] VITALS: Wt 91.0 kg
[~2016-06-07 13:37] MED LIST changes: +TRAM50TA2 PO; -ULT50 PO
[2016-06-07] MEDS ORDERED: VANCOMYCIN 1 GM (PMX) 250 ML IVPB SCH (14:30)
[2016-06-07 14:35] LABS: ADD SCAN DIFF NO
[2016-06-07 14:36] LABS: BASOPHIL # 0.1 10^3/ul (0.0-0.1); BASOPHILS % 0.7 % (0.0-2.0); EOSINOPHILS # 0.2 10^3/ul (0.0-0.5); HEMATOCRIT 34.9 % (42.0-52.0); HEMOGLOBIN 11.3 g/dl (14.0-18.0); LYMPHOCYTES # 2.3 10^3/ul (0.8-2.9); LYMPHOCYTES % 24.9 % (15.0-51.0); MEAN CORPUSCULAR HEMOGLOBIN 27.9 pg (29.0-33.0); MEAN CORPUSCULAR HGB CONC 32.4 g/dl (32.0-37.0); MEAN CORPUSCULAR VOLUME 86.2 fl (82.0-101.0); MEAN PLATELET VOLUME 9.7 fl (7.4-10.4); MONOCYTE # 0.7 10^3/ul (0.3-0.9); MONOCYTES % 7.4 % (0.0-11.0); NEUTROPHILS % 64.7 % (39.0-77.0); PLATELET COUNT 404 10^3/UL (140-415); RED BLOOD COUNT 4.05 10^6/ul (4.70-6.10); RED CELL DISTRIBUTION WIDTH 14.4 % (11.5-14.5); WHITE BLOOD COUNT 9.2 10^3/ul (4.8-10.8)
[2016-06-07 15:10] LABS: ALBUMIN 3.8 g/dl (3.3-4.9); POTASSIUM 4.7 mmol/L (3.5-5.1)
[2016-06-07 15:13] LABS: ALBUMIN/GLOBULIN RATIO 0.88; BILIRUBIN,INDIRECT 0.3 mg/dl (0-1.1); BILIRUBIN,TOTAL 0.3 mg/dl (0.2-1.3); CREATININE 1.14 mg/dl (0.61-1.24); TOTAL PROTEIN 8.1 g/dl (6.1-8.1)
[2016-06-07 15:14] LABS: CALCIUM 9.4 mg/dl (8.4-10.2)
[2016-06-07 15:16] LABS: C-REACTIVE PROTEIN 3.4 mg/dl (0.0-0.9)
--- NOTE | 2016-06-07 16:09 | RADRPT ---
PROCEDURE: Right foot series. CLINICAL INDICATION: Foot ulcer. TECHNIQUE: Three views of the right foot are available for review. COMPARISON: Right foot series 03/18/2016 FINDINGS: There is mild hallux valgus. Multiple hammer toes are present. There is otherwise normal mineraliz ation and alignment of the bones of the right foot.. Lisfranc's joint appears intact. No acute frac ture or dislocation is seen. There are mild degenerative change of the midfoot. There is no definiti ve cortical destruction or other plain film evidence of osteomyelitis. There appear to be to skin d efect on the plantar surface of the foot, 1 over the heel and potentially 1 over the ball of the tye t. The underlying osseous structures appear intact. There is no subcutaneous gas. IMPRESSION: 1. No plain film evidence of osteomyelitis. Please note MRI is far more sensitive for the detectio n of osteomyelitis. 2. Mild hallux valgus. 3. Multiple hammer toes. 4. Degenerative changes of the midfoot. RPTAT: KK .Stanley Huber MD, Date Time Electronically viewed and signed by .Stanley Huber MD, on 06/07/2016 16:09 .B/
[2016-06-07] MEDS ORDERED: IBUP-1542 PO (16:17)
[2016-06-07] MEDS ORDERED: CIPR500T4 PO (16:17)
[2016-06-07] MEDS ORDERED: BACTDS PO (16:17)
--- NOTE | 2016-06-07 16:30 | ERD ---
ER Documentation Chief Complaint Date/Time DATE: 06/07/16 TIME: 16:28 Chief Complaint DIABETIC FOOT ULCER TO [facility] This 46-year-old male presents with history of chronic diabetic foot ulcers. States that it was doing well since his last visit he had an opening on his bottom of his foot. Is requesting antibiotics. Denies fevers, vomiting, shortness breath or chest pain and his tetanus is up-to-date. He denies restricted range of motion or weakness. ROS All systems reviewed and are negative except as per history of present illness. Medications Home Meds Active Scripts Ciprofloxacin Hcl* (Ciprofloxacin Hcl*) 500 Mg Tablet, 500 MG PO BID for 10 Days , TAB Prov:ANDREINA VÁSQUEZ MD 06/07/16 Ibuprofen* (Ibuprofen*) 600 Mg Tablet, 600 MG PO Q6, #20 TAB Prov:ANDREINA VÁSQUEZ MD 06/07/16 Sulfamethoxazole-Trimethoprim* (Bactrim* DS) 800-160 Mg Tab, 1 TAB PO BID, #20 TAB Prov:ANDREINA VÁSQUEZ MD 06/07/16 Levofloxacin* (Levaquin*) 500 Mg Tablet, 500 MG PO DAILY@06 for 42 Days, TAB x6 weeks Prov:TED WISDOM V. DEVELOPMENT VICE PRESIDENT 10/17/15 Insulin Glargine* (Lantus*) 100 Unit/Ml Soln, 24 UNIT SC DAILY for 30 Days Prov:TED WISDOM V. DEVELOPMENT VICE PRESIDENT 10/17/15 Tramadol HCl (Tramadol HCl) 50 Mg Tab, 50 MG PO Q6H Y for PAIN, #20 TAB Prov:WILTON NANCE 12/16/14 Repaglinide* (Prandin*) 2 Mg Tablet, 2 MG PO AC MEALS for 30 Days, TAB Prov:WILTON NANCE 12/16/14 Metformin Hcl (Glucophage) 500 Mg Tab, 1000 MG PO WITH BREAKFAST DINNE for 30 Days Prov:WILTON NANCE 12/16/14 Gemfibrozil* (Lopid*) 600 Mg Tab, 600 MG PO BID for 30 Days Prov:WILTON NANCE 12/16/14 Discontinued Scripts Sulfamethoxazole-Trimethoprim* (Bactrim* DS) 800-160 Mg Tab, 1 TAB PO BID, #20 TAB Prov:ANDREINA VÁSQUEZ MD 06/07/16 Allergies Allergies: Coded Allergies: cefepime (Verified Allergy, Intermediate, HIVES, 12/03/14) PMhx/Soc History of Surgery: Yes (R-foot 3 month ago,r-ankle) Anesthesia Reaction: No Hx Neurological Disorder: Yes Hx Respiratory Disorders: No Hx Cardiac Disorders: No Hx Psychiatric Problems: Yes Hx Miscellaneous Medical Probl: Yes (DM) Hx Alcohol Use: No Hx Substance Use: No Hx Tobacco Use: No Physical Exam Vitals Vital Signs Date Time Temp Pulse Resp B/P Pulse Ox O2 Delivery O2 Flow Rate FiO2 06/07/16 13:40 98.0 113 18 134/80 99 Physical Exam Const: [] Alert, [id number]. Head: Atraumatic Eyes: Normal Conjunctiva ENT: Normal External Ears, Nose and Mouth. Neck: Full range of motion..~ No meningismus. Resp: Clear to auscultation bilaterally Cardio: Regular rate and rhythm, no murmurs Abd: Soft, non tender, non distended. Normal bowel sounds Skin: No petechiae or rashes Back: No midline or flank tenderness Ext: No cyanosis, or edema. At the plantar surface of the right foot there is approximately 2 cm erythematous granulating superficial ulcer without appreciable fluctuance, discharge. There is a 1 cm heel ulcer as well without erythema, induration or active discharge. There is no appreciable bony tenderness. There is no significant erythema or induration. The right lower extremity is neurovascular intact. Neur: Awake and alert Psych: Normal Mood and Affect Result Diagram: 06/07/16 1425 06/07/16 1425 Results 24 hrs Laboratory Tests Test 06/07/16 14:25 White Blood Count 9.210^3/ul Red Blood Count 4.0510^6/ul Hemoglobin 11.3g/dl Hematocrit 34.9% Mean Corpuscular Volume 86.2fl Mean Corpuscular Hemoglobin 27.9pg Mean Corpuscular Hemoglobin Concent 32.4g/dl Red Cell Distribution Width 14.4% Platelet Count 33930^3/UL Mean Platelet Volume 9.7fl Neutrophils % 64.7% Lymphocytes % 24.9% Monocytes % 7.4% Eosinophils % 2.0% Basophils % 0.7% Nucleated Red Blood Cells % 0.0/100WBC Neutrophils # 6.010^3/ul Lymphocytes # 2.310^3/ul Monocytes # 0.710^3/ul Eosinophils # 0.210^3/ul Basophils # 0.110^3/ul Nucleated Red Blood Cells # 0.010^3/ul Erythrocyte Sedimentation Rate 121mm/Hr Sodium Level 142mmol/L Potassium Level 4.7mmol/L Chloride Level 102mmol/L Carbon Dioxide Level 26mmol/L Anion Gap 19 Blood Urea Nitrogen 32mg/dl Creatinine 1.14mg/dl Glucose Level 240mg/dl Calcium Level 9.4mg/dl Total Bilirubin 0.3mg/dl Direct Bilirubin 0.00mg/dl Indirect Bilirubin 0.3mg/dl Aspartate Amino Transf (AST/SGOT) 18IU/L Alanine Aminotransferase (ALT/SGPT) 19IU/L Alkaline Phosphatase 109IU/L C-Reactive Protein 3.4mg/dl Total Protein 8.1g/dl Albumin 3.8g/dl Globulin 4.30g/dl Albumin/Globulin Ratio 0.88 Lipase 80U/L Current Medications Medications (Trade) Dose Ordered Sig/Cody Route PRN Reason Start Time Stop Time Status Last Admin Dose Admin Vancomycin HCl (Vancocin) 250 ml @ 125 mls/hr ONCE IVPB 06/07/16 14:30 06/07/16 16:29 DC 06/07/16 14:30 Procedures/MDM CBC shows no leukocytosis. There is some slight septic anemia. ESR is elevated. Blood sugar is 240. X-ray right foot 3V Interpreted by me: Bones: No fracture Joints: No dislocation Foreign body: None. Impression-normal right foot x-ray Wounds were cleansed and dressed. Patient has history of recurrent and chronic foot ulcers without radiographic signs of osteomyelitis, or evidence of ischemia or gangrene. He does have elevated ESR patient is declining hospitalization and would like a trial of outpatient antibiotics. Patient has been seen at [facility] and was advised to return there for further evaluation and primary doctor as necessary for referral. He was advised to return for increased redness, fevers, new worsening symptoms with primary doctor as directed. Patient was given vancomycin 1 g IV. Patient will be discharged home with a prescription of Bactrim, ibuprofen and Cipro for Pseudomonas coverage. Departure Diagnosis: Primary Impression: Diabetic ulcer of both feet Diabetes mellitus type: type 2 Qualified Code: E11.621 - Diabetic ulcer of both feet associated with type 2 diabetes mellitus Condition: Stable Patient Instructions: Diabetic Foot Ulcers Referrals: [facility] YOU HAVE RECEIVED A MEDICAL SCREENING EXAM AND THE RESULTS INDICATE THAT YOU DO NOT HAVE A CONDITION THAT REQUIRES URGENT TREATMENT IN THE EMERGENCY DEPARTMENT. FURTHER EVALUATION AND TREATMENT OF YOUR CONDITION CAN WAIT UNTIL YOU ARE SEEN IN YOUR DOCTORS OFFICE WITHIN THE NEXT 1-2 DAYS. IT IS YOUR RESPONSIBILITY TO MAKE AN APPOINTMENT FOR FOLOW-UP CARE. IF YOU HAVE A PRIMARY DOCTOR --you should call your primary doctor and schedule an appointment IF YOU DO NOT HAVE A PRIMARY DOCTOR YOU CAN CALL OUR PHYSICIAN REFERRAL HOTLINE AT IF YOU CAN NOT AFFORD TO SEE A PHYSICIAN YOU CAN CHOSE FROM THE FOLLOWING [facility] [address] [facility] [address] [facility] [address] [facility] [address] [facility] [address] [facility] [facility] [address] Additional Instructions: See primary doctor, orthopedist or wound care center for wound care and further management. Return for fevers, worsening redness, new symptoms. ANDREINA VÁSQUEZ MD Jun 07, 2016 16:30
[2016-06-07 16:54] VITALS: BP 128/78; PULSE 78; RESP 18; TEMP 98.1
== END 2016-06-07 16:56 | disposition home or self-care (01) ==
LOC: FTE 13:37
DX: E11.621 Type 2 diabetes mellitus with foot ulcer (principal); E11.9 Type 2 diabetes mellitus without complications; Z79.4 Long term (current) use of insulin; Z79.84 Long term (current) use of oral hypoglycemic drugs
CPT/HCPCS: 36415; 73630; 80053; 83690; 85025; 85651; 86140; 87040; 96365; 96366; J3370; Z7502

== ENCOUNTER 2016-07-19 22:57 | Emergency (ER) | payer MEDICAID ==
[~2016-07-19] VITALS: Ht 180.3 cm; Wt 103.5 kg
[~2016-07-19 22:57] MED LIST changes: +BACTDS PO; +CIPR500T4 PO; +IBUP-1542 PO
[2016-07-19 23:48] VITALS: Ht 180.3 cm; Wt 103.5 kg
[2016-07-20 00:53] LABS: ADD SCAN DIFF NO
[2016-07-20 00:55] LABS: HEMATOCRIT 29.6 % (42.0-52.0); HEMOGLOBIN 9.5 g/dl (14.0-18.0); MEAN CORPUSCULAR HEMOGLOBIN 28.1 pg (29.0-33.0); MEAN CORPUSCULAR HGB CONC 32.1 g/dl (32.0-37.0); MEAN CORPUSCULAR VOLUME 87.6 fl (82.0-101.0); MEAN PLATELET VOLUME 9.7 fl (7.4-10.4); PLATELET COUNT 445 10^3/UL (140-415); RED BLOOD COUNT 3.38 10^6/ul (4.70-6.10); RED CELL DISTRIBUTION WIDTH 15.1 % (11.5-14.5); WHITE BLOOD COUNT 11.4 10^3/ul (4.8-10.8)
--- NOTE | 2016-07-20 01:20 | RADRPT ---
PROCEDURE: Right foot. CLINICAL INDICATION: Pain and swelling. TECHNIQUE: Three views including AP, lateral and oblique views of the right foot were obtained. The images were reviewed on a PACS workstation. COMPARISON: 06/07/2016. FINDINGS: There is soft tissue swelling and interstitial air about the heel. There is no fracture, dislocatio n or bone destruction. The joint spaces are within normal limits. Bone mineralization is within no rmal limits. There is no abnormal cortical lucency or periosteal reaction. There is no radiopaque foreign body or abnormal calcification. There is a small plantar calcaneal spur. IMPRESSION: Soft tissue swelling and interstitial air about the heel compatible with ulcer. There is no radiogra phic evidence of osteomyelitis; however, further evaluation can be made by MRI or three-phase bone s can if clinically warranted. .Timi Lee MD, MD Date Time Electronically viewed and signed by .Timi Lee MD, MD on 07/20/2016 01:20 .T/
--- NOTE | 2016-07-20 01:23 | RADRPT ---
PROCEDURE: Left foot. CLINICAL INDICATION: Pain and swelling. TECHNIQUE: Three views including AP, lateral and oblique views of the left foot were obtained. T he images were reviewed on a PACS workstation. COMPARISON: 02/23/2015. FINDINGS: There is no acute fracture or dislocation. There is increased sclerosis and periosteal reaction abo ut the second metatarsophalangeal joint. There is no radiopaque foreign body or abnormal calcificat ion. There is an ulcer adjacent to the fifth metatarsophalangeal joint. IMPRESSION: Increased sclerosis and periosteal reaction about the 2nd metatarsophalangeal joint consistent with chronic osteomyelitis. Further evaluation can be made by MRI or three-phase bone scan if clinically warranted. Soft tissue ulcer adjacent to the fifth metatarsophalangeal joint. .Timi Lee MD, MD Date Time Electronically viewed and signed by .Timi Lee MD, MD on 07/20/2016 01:23 .T/
[2016-07-20 01:28] LABS: ALBUMIN 3.3 g/dl (3.3-4.9); POTASSIUM 4.3 mmol/L (3.5-5.1)
[2016-07-20 01:29] LABS: ADD UMIC YES; URINE BILIRUBIN (Dip) NEGATIVE (NEGATIVE); URINE BLOOD (Dip) 2+ (NEGATIVE); URINE COLOR LT. YELLOW (YELLOW); URINE GLUCOSE (Dip) NEGATIVE (NEGATIVE); URINE KETONES (Dip) NEGATIVE (NEGATIVE); URINE LEUKOCYTE ESTERASE (Dip) NEGATIVE (NEGATIVE); URINE NITRITE (Dip) NEGATIVE (NEGATIVE); URINE TOTAL PROTEIN (Dip) 1+ (NEGATIVE); URINE UROBILINOGEN (Dip) 0.2 E.U./dL (0.1-1.0)
[2016-07-20 01:31] LABS: ALBUMIN/GLOBULIN RATIO 0.7; CALCIUM 8.6 mg/dl (8.4-10.2); CREATININE 1.46 mg/dl (0.61-1.24)
[2016-07-20 01:39] LABS: BACTERIA,URINE OCCASIONAL
--- NOTE | 2016-07-20 02:25 | ERD ---
ER Documentation Chief Complaint Date/Time DATE: 07/20/16 TIME: 02:20 Chief Complaint sae feet ulcer and swelling hx diabetic ulcer HPI This is a 46-year-old male with a history of diabetes and chronic foot ulcers who presents to the emergency room for evaluation of bilateral feet swelling. This patient states that he has been wrapping his feet tight in a special bandage. The patient denies any fevers or new trauma. He came to the ER for evaluation of swelling in his feet. The patient denies any other complaints at this time. ROS All systems reviewed and are negative except as per history of present illness. Medications Home Meds Active Scripts Ciprofloxacin Hcl* (Ciprofloxacin Hcl*) 500 Mg Tablet, 500 MG PO BID for 10 Days , TAB Prov:ANDREINA VÁSQUEZ MD 06/07/16 Ibuprofen* (Ibuprofen*) 600 Mg Tablet, 600 MG PO Q6, #20 TAB Prov:ANDREINA VÁSQUEZ MD 06/07/16 Sulfamethoxazole-Trimethoprim* (Bactrim* DS) 800-160 Mg Tab, 1 TAB PO BID, #20 TAB Prov:ANDREINA VÁSQUEZ MD 06/07/16 Levofloxacin* (Levaquin*) 500 Mg Tablet, 500 MG PO DAILY@06 for 42 Days, TAB x6 weeks Prov:TED WISDOM NP 10/17/15 Insulin Glargine* (Lantus*) 100 Unit/Ml Soln, 24 UNIT SC DAILY for 30 Days Prov:TED WISDOM NP 10/17/15 Tramadol HCl (Tramadol HCl) 50 Mg Tab, 50 MG PO Q6H Y for PAIN, #20 TAB Prov:WILTON NANCE 12/16/14 Repaglinide* (Prandin*) 2 Mg Tablet, 2 MG PO AC MEALS for 30 Days, TAB Prov:WILTON NANCE 12/16/14 Metformin Hcl (Glucophage) 500 Mg Tab, 1000 MG PO WITH BREAKFAST DINNE for 30 Days Prov:WILTON NANCE 12/16/14 Gemfibrozil* (Lopid*) 600 Mg Tab, 600 MG PO BID for 30 Days Prov:WILTON NANCE 12/16/14 Allergies Allergies: Coded Allergies: cefepime (Verified Allergy, Intermediate, HIVES, 12/03/14) PMhx/Soc History of Surgery: Yes (R-foot 3 month ago,r-ankle) Anesthesia Reaction: No Hx Neurological Disorder: Yes Hx Respiratory Disorders: No Hx Cardiac Disorders: No Hx Psychiatric Problems: Yes Hx Miscellaneous Medical Probl: Yes (DM, DIABETIC FOOT ULCERS) Hx Alcohol Use: No Hx Substance Use: No Hx Tobacco Use: No Smoking Status: Unknown if ever smoked Physical Exam Vitals Vital Signs Date Time Temp Pulse Resp B/P Pulse Ox O2 Delivery O2 Flow Rate FiO2 07/20/16 00:10 98.3 100 17 126/86 100 Room Air 07/19/16 23:48 99.9 107 18 130/82 98 Physical Exam INITIAL VITAL SIGNS: Reviewed by me GENERAL: The patient is well developed and appropriate for usual state of health in no apparent distress HEENT: Pupils equal, round, and reactive to light. EOMI. There is no scleral icterus. NECK: C-spine is soft and supple, there is no meningismus. There is no cervical lymphadenopathy. LUNGS: Clear to auscultation bilaterally. There are no rales, wheezes or rhonchi. HEART: Regular rate and rhythm, no murmurs, clicks, rubs or gallops. ABDOMEN: Soft, non-tender, non-distended. There are bowel sounds in all four quadrants. No rebound or guarding. EXTREMITIES: 2+ pitting edema in the bilateral lower extremities there is no peripheral cyanosis, nonhealing ulcers noted at the plantar aspect of the right foot, and lateral aspect of the left fifth digit on the foot NEUROLOGICAL: The patient moves all four extremities with 5/5 strength. Cranial nerves II - XII are intact. Normal gait. Alert and oriented SKIN: There is no apparent rash or petechiae. HEME/LYMPHATIC: There is no evidence of excessive bruising or lymphedema. PSYCHIATRIC: The patient does not appear anxious or depressed. Result Diagram: 07/20/16 0020 07/20/16 0020 Results 24 hrs Laboratory Tests Test 07/20/16 00:20 07/20/16 01:07 White Blood Count 11.410^3/ul Red Blood Count 3.3810^6/ul Hemoglobin 9.5g/dl Hematocrit 29.6% Mean Corpuscular Volume 87.6fl Mean Corpuscular Hemoglobin 28.1pg Mean Corpuscular Hemoglobin Concent 32.1g/dl Red Cell Distribution Width 15.1% Platelet Count 34107^3/UL Mean Platelet Volume 9.7fl Neutrophils % % Lymphocytes % % Monocytes % % Neutrophils # 10^3/ul Lymphocytes # 10^3/ul Monocytes # 10^3/ul Sodium Level 136mmol/L Potassium Level 4.3mmol/L Chloride Level 98mmol/L Carbon Dioxide Level 25mmol/L Anion Gap 17 Blood Urea Nitrogen 30mg/dl Creatinine 1.46mg/dl Glucose Level 202mg/dl Calcium Level 8.6mg/dl Total Bilirubin 0.0mg/dl Direct Bilirubin 0.00mg/dl Indirect Bilirubin 0.0mg/dl Aspartate Amino Transf (AST/SGOT) 17IU/L Alanine Aminotransferase (ALT/SGPT) 24IU/L Alkaline Phosphatase 136IU/L Total Protein 8.0g/dl Albumin 3.3g/dl Globulin 4.70g/dl Albumin/Globulin Ratio 0.70 Lipase 91U/L Urine Color LT. YELLOW Urine Clarity CLEAR Urine pH 5.5 Urine Specific [place] >=1.030 Urine Ketones NEGATIVE Urine Nitrite NEGATIVE Urine Bilirubin NEGATIVE Urine Urobilinogen 0.2 E.U./dL Urine Leukocyte Esterase NEGATIVE Urine Microscopic RBC 10-25/HPF Urine Microscopic WBC 2-5/HPF Urine Bacteria OCCASIONAL Urine Hemoglobin 2+ Urine Glucose NEGATIVE% Urine Total Protein 1+ Current Medications Medications (Trade) Dose Ordered Sig/Cody Route PRN Reason Start Time Stop Time Status Last Admin Dose Admin Vancomycin HCl/ Sodium Chloride (Vancocin/NS) 250 ml @ 83.333 mls/ hr ONCE ONCE IVPB 07/20/16 02:30 07/20/16 05:29 Procedures/MDM X-ray Foot 3V Interpreted by me: Right foot Bones: [No fracture] foot ulcer, no osteomyelitis Joints: [No dislocation] Foreign body: [None] X-ray Foot 3V Interpreted by me: Left foot Bones: Increased sclerosis and periosteal reaction about the 2nd metatarsophalangeal joint consistent with chronic osteomyelitis. Further evaluation can be made by MRI or three-phase bone scan if clinically warranted. Joints: [No dislocation] Foreign body: [None] This 46-year-old male presents to the emergency room for evaluation of bilateral feet swelling. I evaluated this patient, and he had a bandage wrap around his feet bilaterally which was extremely tight. I undid the bandage. The patient did have pulses bilaterally however he did have swelling in the bilateral lower extremities. X-rays were obtained of the right foot which did not show any osteomyelitis. An x-ray of the left foot was obtained which shows chronic osteomyelitis. This patient has a slight leukocytosis. I have spoken with this patient about admission to the hospital for IV antibiotics. The patient is refusing admission to the hospital at this time. He was given vancomycin intravenously in the emergency room. He will be discharged AGAINST MEDICAL ADVICE at this time with a prescription for Bactrim DS, and Keflex. The patient was advised to return immediately to the emergency room if he changes his mind about admission and he verbalized understanding. Against Medical Advice Note The patient verbalized understanding of risks of signing out against medical advice including and disability. The patient explained to me the reason for wanting to sign out against medical advice, because he does not want to stay in the hospital. The patient is alert and oriented x 3 with decisional capacity and competence to sign out. They were welcomed to come back to ER and will be going home with discharge paperwork. Departure Diagnosis: Primary Impression: Chronic osteomyelitis Additional Impressions: Diabetic ulcer of both feet Normocytic anemia Renal insufficiency Condition: Stable LAURA FLORES DO July 20, 2016 02:25
[2016-07-20] MEDS ORDERED: SULF1TAB31 PO (02:26)
[2016-07-20] MEDS ORDERED: CLIN-73 PO (02:26)
[2016-07-20] MEDS ORDERED: VANCOMYCIN 1.25 GM in SOD CHLORIDE 0.9% 250 ML IVPB ONE (02:30)
[2016-07-20 02:49] LABS: EOSINOPHILS # 0.3 10^3/ul (0.0-0.5); LYMPHOCYTES # 2.2 10^3/ul (0.8-2.9); MONOCYTE # 1.5 10^3/ul (0.3-0.9); NEUTROPHIL # 7.4 10^3/ul (1.6-7.5)
[2016-07-20 02:52] LABS: PLATELET ESTIMATE PLT APPEAR INCREASED
[2016-07-20 05:54] VITALS: BP 107/69; PULSE 87; RESP 15; TEMP 97.9
== END 2016-07-20 05:56 | disposition left against medical advice (07) ==
LOC: E/R 22:57
DX: M86.671 Other chronic osteomyelitis, right ankle and foot (principal); M86.672 Other chronic osteomyelitis, left ankle and foot; E11.621 Type 2 diabetes mellitus with foot ulcer; L97.519 Non-pressure chronic ulcer of other part of right foot with unspecified severity; L97.529 Non-pressure chronic ulcer of other part of left foot with unspecified severity; D64.9 Anemia, unspecified; N28.9 Disorder of kidney and ureter, unspecified; Z79.4 Long term (current) use of insulin; Z79.84 Long term (current) use of oral hypoglycemic drugs
CPT/HCPCS: 73630; 80053; 81001; 83690; 85025; 96374; J3370; J7050; Z7502; 81003

== ENCOUNTER 2017-10-24 04:14 | Emergency (ER) | END 2017-10-24 08:15 | disposition home or self-care (01) ==

== ENCOUNTER 2017-10-27 05:04 | Emergency (ER) | END 2017-10-27 12:06 | disposition left against medical advice (07) ==